=== PATIENT | male | born 1970 | race Caucasian/White ===

== ENCOUNTER 2022-07-12 15:54 | Outpatient (CLI) | payer OTHER, SELFPAY ==
--- OUTSIDE RECORDS SUMMARY | 2022-07-12 07:55 | XMS_ITS | Clinical Summary ---
:1970 Author Organization [facility] Address [address] [place] [address] Care Team Providers Name Role Phone Unavailable Primary Care Provider Unavailable Source Comments You are receiving this document as you are listed as the primary care provider,follow-up provider, or the patient has been referred to you for consultation.This is in compliance with the Medicare and Medicaid EHR Incentive Program,which states Providers who transition their patient to another setting of careor provider of care or refers their patient to another provider of care shouldprovide summarycare record for each transition of care or referral. [employer] Allergies No known active allergies Medications Medication Sig Dispensed Refills Start Date End Date Status fenofibrate (LOFIBRA) Take 160 mg by 0 Active 160 MG tablet mouth daily. Active Problems Problem Noted Date Hypertriglyceridemia 03/11/2022 Immunizations Name Administration Dates Next Due Flu Vac Preserv Free (3+yrs) 12/04/2012, 08/14/2011, 010 Flublok (RIV4) 11/08/2021 Influenza [id number] 09/21/2009 Influenza IIV4 (Quadrivalent) 0.5mL 09/05/2020, 10/06/2019, 12/22/2017, (10880) 12/07/2015 Moderna (Spikevax) COVID-19, 12+ Yrs 11/08/2021 Pfizer (Comirnaty) COVID-19, 12+ Yrs 03/13/2021, 02/20/2021 Purple Top Tdap 12/07/2015 Family History Medical History Relation Name Comments Cancer, Breast Sister Rimma Cancer, Ovary Negative Family History Relation Name Status Comments Father Alive Mother Alive Sister Rimma Social History Tobacco Use Types Packs/Day Years Used Date Smoking Tobacco: Never Smokeless Tobacco: Never Alcohol Use Standard Drinks/Week Comments Yes 0 (1 standard drink = 0.6 oz pure alcoho l) Sex Assigned at Date Recorded Not on file Last Filed Vital Signs Vital Sign Reading Time Taken Comments Blood Pressure 134/76 03/11/2022 1:05 PM CDT Pulse 80 03/11/2022 1:05 PM CDT Temperature - - Respiratory Rate 16 03/11/2022 1:05 PM CDT Oxygen Saturation - - Inhaled Oxygen Concentration - - Weight 108.9 kg (240 lb) 03/11/2022 1:05 PM CDT Height 182.9 cm (6') 03/11/2022 1:05 PM CDT Body Mass Index 32.55 03/11/2022 1:05 PM CDT Plan of Treatment Health Maintenance Due Date Last Done Comments Colon Cancer Screening Plan 1970 Due Hep C Screening (Preventive 1970 Services) HepB (1) 1970 HIV Screening (Preventive 1988 Services) Adult Preventive Visit 1990 Influenza (#1) 2022 11/08/2021, 09/05/2020, 10/06/2019, Additional history exists Zoster/Shingles (1 of 2) 2022 DTaP/Tdap/Td (2 - Tdap) 12/07/2025 12/07/2015 Cholesterol 03/12/2027 03/12/2022 COVID-19 Vaccine Completed 11/08/2021, 03/13/2021, 02/20/2021 HepA Aged Out No longer eligib le based on patient 's age to complete this topic Hib Aged Out No longer eligib le based on patient 's age to complete this topic IPV (Polio) Aged Out No longer eligib le based on patient 's age to complete this topic MCV4 Aged Out No longer eligib le based on patient 's age to complete this topic Pneumococcal Aged Out No longer eligib le based on patient 's age to complete this topic Insurance Payer Benefit Plan / Subscriber ID Effective Dates Phone Addre ss Type Group [employer] FULLY [id number] 2017-Present Commercial INSURED
--- OUTSIDE RECORDS SUMMARY | 2022-07-12 07:55 | XMS_ITS | Encounter Summary ---
:1970 Author Organization [facility] Address [address] [address] Care Team Providers Name Role Phone Unavailable Primary Care Provider Unavailable Reason for Visit Procedure/Equipment (Routine) - Incomplete Specialty Diagnoses / Procedures Referred By Contact Refer red To Contact Diagnoses Axillary mass, bilateral KeithRandall vance, PA-C Procedures YMM Mammogram Diag Bilat MM Mammogram Diag Bilat [address] [address] [place] [address] Referral ID Status Reason Start Date Expiration Date Visits V isits Requested Authorized [id number] Incomplete 03/11/2022 06/10/2023 1 1 Encounter Details Date Type Department Care Team Description 03/18/2022 Ancillary Procedure [facility] [address] Randall Parker , Axillary mass, Mammography PA-C bilateral 3850 [facility] [address] [facility]. [address] [address] [phone] Social History Tobacco Use Types Packs/Day Years Used Date Smoking Tobacco: Never Smokeless Tobacco: Never Alcohol Use Standard Drinks/Week Comments Yes 0 (1 standard drink = 0.6 oz pure alcoho l) Sex Assigned at Date Recorded Not on file documented as of this encounter Plan of Treatment Not on filedocumented as of this encounter Procedures Procedure Name Priority Date/Time Associated Diagnosis Comme nts YMM MAMMOGRAM DIAG Routine 03/18/2022 7:44 AM Axillary mass, R esults for this BILAT CDT bilateral procedure are i n the results section. documented in this encounter Results [facility] US Breast Bilat (03/18/2022 8:05 AM CDT) Anatomical Region Laterality Modality Breast Bilateral Ultrasound Specimen (Source) Anatomical Collection Method Collection Time Re ceived Time Location / / Volume Laterality 03/18/2022 7:57 AM CDT Impressions 03/18/2022 8:24 AM CDT HISTORY: Bilateral axillary masses COMPARISON: None ?? FINDINGS: ??Bilateral mammogram was perf ormed. Fatty replaced axillary lymph nodes are seen bilaterally. No suspicious finding is seen. Ultrasound of the axilla bilaterally in the areas of concern was performed. No abnormality is seen. Normal, fatty replaced lymph nodes are present bilaterally. IMPRESSION: ??ACR BI-RADS CATEGORY 1: ?? Negative. ?? RECOMMENDATION: Routine breast cancer sc reening. Clinical follow up of the areas of concern within the axilla bilaterally. Given the lack of imaging findings, management would need to be based on clinical grounds. The results of this examination and paula mmended follow up were discussed with the patient. [facility] will attempt to schedule recommended follow up with the patient. Procedure Note Amber Murray MD - 03/18/2022Formattin g of this note might be different from the original. IMPRESSION HISTORY: Bilateral axillary masses COMPARISON: None FINDINGS: Bilateral mammogram was perfor med. Fatty replaced axillary lymph nodes are seen bilaterally. No suspicious finding is seen. Ultrasound of the axilla bilaterally in the areas of concern was performed. No abnormality is seen. Normal, fatty replaced lymph nodes are present bilaterally. IMPRESSION: ACR BI-RADS CATEGORY 1: Nega tive. RECOMMENDATION: Routine breast cancer sc reening. Clinical follow up of the areas of concern within the axilla bilaterally. Given the lack of imaging findings, management would need to be based on clinical grounds. The results of this examination and paula mmended follow up were discussed with the patient. [facility] will attempt to schedule recommended follow up with the patient. Randall Parker PA-C [facility] Mammogram Diag Bilat (03/18/2022 7:44 AM CDT) Anatomical Region Laterality Modality Breast Bilateral Mammography Specimen (Source) Anatomical Collection Method Collection Time Re ceived Time Location / / Volume Laterality 03/18/2022 7:39 AM CDT Impressions 03/18/2022 8:24 AM CDT HISTORY: Bilateral axillary masses COMPARISON: None ?? FINDINGS: ??Bilateral mammogram was perf ormed. Fatty replaced axillary lymph nodes are seen bilaterally. No suspicious finding is seen. Ultrasound of the axilla bilaterally in the areas of concern was performed. No abnormality is seen. Normal, fatty replaced lymph nodes are present bilaterally. IMPRESSION: ??ACR BI-RADS CATEGORY 1: ?? Negative. ?? RECOMMENDATION: Routine breast cancer sc reening. Clinical follow up of the areas of concern within the axilla bilaterally. Given the lack of imaging findings, management would need to be based on clinical grounds. The results of this examination and paula mmended follow up were discussed with the patient. [facility] will attempt to schedule recommended follow up with the patient. Procedure Note Amber Murray MD - 03/18/2022Formattin g of this note might be different from the original. IMPRESSION HISTORY: Bilateral axillary masses COMPARISON: None FINDINGS: Bilateral mammogram was perfor med. Fatty replaced axillary lymph nodes are seen bilaterally. No suspicious finding is seen. Ultrasound of the axilla bilaterally in the areas of concern was performed. No abnormality is seen. Normal, fatty replaced lymph nodes are present bilaterally. IMPRESSION: ACR BI-RADS CATEGORY 1: Nega tive. RECOMMENDATION: Routine breast cancer sc reening. Clinical follow up of the areas of concern within the axilla bilaterally. Given the lack of imaging findings, management would need to be based on clinical grounds. The results of this examination and paula mmended follow up were discussed with the patient. [facility] will attempt to schedule recommended follow up with the patient. Randall Parker PA-C RAD [facility] documented in this encounter Visit Diagnoses Diagnosis Axillary mass, bilateral Axillary mass, bilateral documented in this encounter
--- OUTSIDE RECORDS SUMMARY | 2022-07-12 07:55 | XMS_ITS | Encounter Summary ---
:1970 Author Organization [facility] Address [address], [place] [address] Care Team Providers Name Role Phone Unavailable Primary Care Provider Unavailable Reason for Visit Procedure/Equipment (Routine) - Incomplete Specialty Diagnoses / Procedures Referred By Contact Refer red To Contact Diagnoses Axillary mass, bilateral Randall Parker, PA-C Procedures [facility] US Breast Bilat US Breast Bilat [address] [place] [address] Referral ID Status Reason Start Date Expiration Date Visits V isits Requested Authorized [id number] Incomplete 03/11/2022 06/10/2023 1 1 Encounter Details Date Type Department Care Team Description 03/18/2022 Ancillary Procedure [facility] [address] Randall Parker , Axillary mass, Mammography PA-C bilateral [address] [facility] [address] [facility]. [place] [id number] [place] [address] [phone] Social History Tobacco Use Types Packs/Day Years Used Date Smoking Tobacco: Never Smokeless Tobacco: Never Alcohol Use Standard Drinks/Week Comments Yes 0 (1 standard drink = 0.6 oz pure alcoho l) Sex Assigned at Date Recorded Not on file documented as of this encounter Plan of Treatment Not on filedocumented as of this encounter Procedures Procedure Name Priority Date/Time Associated Diagnosis Comme nts [facility] US BREAST BILAT Routine 03/18/2022 8:05 AM Axillary mass, Results for this CDT bilateral procedure are i n the results section. documented in this encounter Results [facility] US Breast Bilat (03/18/2022 8:05 AM CDT) [...] up were discussed with the patient. [facility] will attempt to schedule recommended follow up [...] up were discussed with the patient. [facility] will attempt to schedule recommended follow up with the patient. Randall Parker PA-C RAD AYESHA YMM Mammogram Diag Bilat (03/18/2022 7:44 AM CDT) [...] up were discussed with the patient. [facility] will attempt to schedule recommended follow up [...] up were discussed with the patient. [facility] will attempt to schedule recommended follow up with the patient. Randall Parker PA-C RAD AYESHA documented in this encounter Visit Diagnoses Diagnosis Axillary mass, bilateral Axillary mass, bilateral documented in this encounter
--- OUTSIDE RECORDS SUMMARY | 2022-07-12 07:56 | XMS_ITS | Encounter Summary ---
:1970 Author Organization [facility] Address [address] [place] [address] Care Team Providers Name Role Phone Unavailable Primary Care Provider Unavailable Reason for Referral Procedure/Equipment (Routine) - Incomplete Specialty Diagnoses / Procedures Referred By Contact Refer red To Contact Diagnoses Axillary mass, bilateral Randall Parker PA-C Procedures Y[facility] US Breast Bilat MM US Breast Bilat [address] [place] [address] Referral ID Status Reason Start Date Expiration Date Visits V isits Requested Authorized [id number] Incomplete 03/11/2022 06/10/2023 1 1 Procedure/Equipment (Routine) - Incomplete Specialty Diagnoses / Procedures Referred By Contact Refer red To Contact Diagnoses Axillary mass, bilateral Randall Parker PA-C Procedures YMM Mammogram Diag Bilat MM Mammogram Diag Bilat [address] [address] [place] [address] Referral ID Status Reason Start Date Expiration Date Visits V isits Requested Authorized [id number] Incomplete 03/11/2022 06/10/2023 1 1 (Routine) - New Request Specialty Diagnoses / Procedures Referred By Contact Refer red To Contact Diagnoses Screen for colon cancer Randall Parker PA-C Procedures Endoscopy, Colon, Screening/Diagnostic [address] [place] [address] Referral ID Status Reason Start Date Expiration Date Visits V isits Requested Authorized [id number] New Request 03/11/2022 03/11/2024 1 1 Reason for Visit Reason Comments SWOLLEN GLANDS Under arms bilat x2mo Encounter Details Date Type Department Care Team Description 03/11/2022 Office Visit [place] [address] Randall Parker ma ss, bilateral (Primary Dx); Family Medicine NAYLA Jane Hypertriglyceridemia (HRC); [place] [address] [facility] Screen for co stephanie cancer; [facility] Screening for prostate cancer; [place], [place] Screening for diabetes mellitus [id number] [phone] Social History Tobacco Use Types Packs/Day Years Used Date Smoking Tobacco: Never Smokeless Tobacco: Never Alcohol Use Standard Drinks/Week Comments Yes 0 (1 standard drink = 0.6 oz pure alcoho l) Sex Assigned at Date Recorded Not on file documented as of this encounter Last Filed Vital Signs Vital Sign Reading [...] Mass Index 32.55 03/11/2022 1:05 PM CDT documented in this encounter Patient Instructions Patient InstructionsRandall Parker PA-C - 03/11/2022 1:30 PM CDT Plan: 1). Will obtain mammogram and ultrasound as ordered and base any follow up on results 2). Orders placed for fasting labs to get done when able 3). Orders placed for colonoscopy 4). Follow up with any other acute issues or concerns. documented in this encounter Progress Notes Randall Parker PA-C - 03/11/2022 1:00 PM CDT Chief Complaint Patient presents with ??? SWOLLEN GLANDS Under arms bilat x2mo History of present illness: Ryder Choi is a 51 y.o. male who presents with: 1). Swollen glands: Has noted likely swollen glands vs other mass in both axillary areas first notedabout 2 months ago. Seem to be symmetric on both sides.Initally getting bigger but have not continued to enlarge. Denies any tenderness or outward redness or swelling. No other LAD. Feels weill with no illness type symptoms, fatigue, weight loss, or night sweats. No breast enlargement or nipple discharge. 2). Hypertriglyceridemia: Currently on Fenofibrate 160mg daily. Is due for fasting labs. NOTE: Also due for screening colonoscopy Review of Systems: As stated in HPI otherwise negative. Past Medical History: Reviewed and updated in medical record at visit Past Surgical History: Reviewed and updated in medical record at visit Family History: Reviewed and updated in medical record at visit Medications: Reviewed and reconciled in medical record at visit. Allergies: Reviewed and updated in medical record at visit. Physical Exam: Vitals: 03/11/22 1305 BP: 134/76 Pulse: 80 Resp: 16 GEN: Alert, oriented, well nourished/hydrated in NAD. Does not appear acutely ill. EYES: PEERL, EOMI NECK: Supple, trachea midline, no LAD CHEST: Normal effort, CTA. HEART: RRR, No audible murmur, rub or gallop. ABD: No tenderness to palpation and no rebound or guarding. No masses or organomegaly. SKIN: Warm and dry without rash. Exam of both axillary areas with symmetric masses in lower axilla. No outward redness. No tenderness. They feel smooth and soft. No breast lesions noted. M/S: No joint swelling or redness. NEURO: CN 2-12 intact, non-focal exam PSYCH: Alert and oriented. Normal affect. Diagnosis: Encounter Diagnoses Name Primary? Axillary mass, bilateral Yes ??? Hypertriglyceridemia (HRC) ??? Screen for colon cancer ??? Screening for prostate cancer ??? Screening for diabetes mellitus Plan: 1). Will obtain mammogram and ultrasound as ordered and base any follow up on results 2). Orders placed for fasting labs to get done when able 3). Orders placed for colonoscopy 4). Follow up with any other acute issues or concerns. Orders Placed This Encounter ??? Complete Blood Count -W/Diff ??? C Reactive Protein (CRP) ??? PSA Tumor Marker (Prostatic Specific Antigen) ??? Lipid Panel - LDLD If Trig High ??? Hgb A1C ??? YMM Mammogram Diag Bilat ??? YMM US Breast Bilat ??? Endoscopy, Colon, Screening/Diagnostic documented in this encounter Plan of Treatment Scheduled Orders Name Type Priority Associated Diagnoses Order S chedule Endoscopy, Colon, GI Routine Screen for colon cancer 1 Occurrences starting Screening/Diagnostic 022 until 03/11/2024 documented as of this encounter Results [facility] US Breast Bilat (03/18/2022 8:05 AM CDT) [...] up were discussed with the patient. [facility] will attempt to schedule recommended follow up [...] up were discussed with the patient. [facility] will attempt to schedule recommended follow [...] up were discussed with the patient. [facility] will attempt to schedule recommended follow [...] up were discussed with the patient. The [facility] will attempt to schedule recommended follow up with the patient. Randall Parker PA-C [facility] Hgb A1C (03/12/2022 10:01 AM CDT) [facility] Method Time Signature Hemoglobin A1C 5.6 <=5.6 % 03/12/2022 [place] 5:31 PM CDT [facility] Specimen Anatomical Collection Method / Collection Time Recei mac Time (Source) Location / Volume Laterality Blood Venipuncture / 03/12/2022 10:01 2 Unknown AM CDT 10:01 AM CDT Randall Parker PA-C LAB_1 Performing Organization Address City/State/[facility] Code Phon e Number [facility] [address] [address] (ABNORMAL) Lipid Panel - LDLD If Trig High (03/12/2022 10:01 AM CDT) [facility] Method Time Signature Cholesterol 194 0 - 199 03/12/2022 [facility] mg/dL 2:49 PM CDT LABORATORY Triglyceride 244 (H) <=149 03/12/2022 [facility] mg/dL 2:49 PM CDT LABORATORY HDL Cholesterol 31 (L) >=40 03/12/2022 [facility] mg/dL 2:49 PM CDT LABORATORY LDL, Calculated 114 <130 03/12/2022 [facility] mg/dL 2:49 PM CDT LABORATORY Non HDL Chol, 163 (H) <=159 03/12/2022 [facility] Calculated mg/dL 2:49 PM CDT LABORATORY Cholesterol/HDL 6.3 03/12/2022 [facility] Ratio 2:49 PM CDT LABORATORY Hours Fasting 13 03/12/2022 [facility] 2:49 PM CDT Specimen Anatomical Collection Method / Collection Time Recei mac Time (Source) Location / Volume Laterality Blood Venipuncture / 03/12/2022 10:01 2 Unknown AM CDT 10:01 AM CDT Randall Parker PA-C LAB_1 Performing Organization Address City/State/ZIP Code Phon e Number [facility] [address] [place] [phone] [facility] [address] [place] [address], [facility] PSA Tumor Marker (Prostatic Specific Antigen) (03/12/2022 10:01 AM CDT) athologist Signature Prostatic 0.4 0.0 - 4.0 03/12/2022 [facility] Specific ng/mL 4:07 PM CDT LABORATORY Antigen Specimen Anatomical Collection Method / Collection Time Recei mac Time (Source) Location / Volume Laterality Blood Venipuncture / 03/12/2022 10:01 2 Unknown AM CDT 10:01 AM CDT Narrative [facility] - 03/12/2022 4:07 P M CDT The Easy Tempo PSA Chemiluminescent immunoas say is used. Results obtained with different test methods or kits cannot be used inte rchangeably. Randall Parker PA-C LAB_1 Performing Organization Address City/State/ZIP Code Phon e Number [facility] [address] [place] [address] C Reactive Protein (CRP) (03/12/2022 10:01 AM CDT) athologist Signature C-Reactive <0.5 0.0 - 0.7 03/12/2022 [facility] Protein mg/dL 2:49 PM CDT LABORATORY Specimen Anatomical Collection Method / Collection Time Recei mac Time (Source) Location / Volume Laterality Blood Venipuncture / 03/12/2022 10:01 2 Unknown AM CDT 10:01 AM CDT Randall Parker PA-C LAB_1 Performing Organization Address City/[facility]/ZIP Code Phon e Number [facility] [address] [place], [place] [phone] documented in this encounter Visit Diagnoses Diagnosis Axillary mass, bilateral - Primary Hypertriglyceridemia (HRC) Pure hyperglyceridemia Screen for colon cancer Special screening for malignant neoplasm s, colon Screening for prostate cancer Special screening for malignant neoplasm of prostate Screening for diabetes mellitus Axillary mass, bilateral Axillary mass, bilateral documented in this encounter
--- OUTSIDE RECORDS SUMMARY | 2022-07-12 07:56 | XMS_ITS | Encounter Summary ---
:1970 Author Organization [facility] Address [address] [place] [address] Care Team Providers Name Role Phone Unavailable Primary Care Provider Unavailable Encounter Details Date Type Department Care Team Description 03/12/2022 Lab Visit [facility] Axillary mass, bilateral; [address] [facility]ening for prostate cance r; [place], [place] Hypertriglycer idemia (HRC); [address] Screening for diabetes [facility] [phone] Social History Tobacco Use Types Packs/Day Years Used Date Smoking Tobacco: Never Smokeless Tobacco: Never Alcohol Use Standard Drinks/Week Comments Yes 0 (1 standard drink = 0.6 oz pure alcoho l) Sex Assigned at Date Recorded Not on file documented as of this encounter Plan of Treatment Not on filedocumented as of this encounter Procedures Procedure Name Priority Date/Time Associated Diagnosis Comme nts CBC AND Routine 03/12/2022 10:01 Axillary mass, bilateral Results for DIFFERENTIAL PANEL AM CDT this proc edure are in the results section. LIPID PANEL AND Routine 03/12/2022 10:01 Hypertriglyceridemia (HRC) Results for DIRECT LDL(IF AM CDT this procedure NEEDED) are in the results section. COMPLETE BLOOD Routine 03/12/2022 10:01 Axillary mass, bilater al Results for COUNT-W/DIFF AM CDT this procedure are in the results section. PROSTATIC SPECIFIC Routine 03/12/2022 10:01 Screening for pros gann Results for ANTIGEN (DIAGNOSTIC AM CDT cancer this pro cedure F/U) are in the results section. C-REACTIVE PROTEIN Routine 03/12/2022 10:01 Axillary mass, jorge ateral Results for AM CDT this procedure are in the results section. HGB A1C Routine 03/12/2022 10:01 Screening for diabetes R esults for AM CDT mellitus this procedure are in the results section. documented in this encounter Results Complete Blood Count-W/Diff (03/12/2022 10:01 AM CDT) P athologist Signature WBC 5.9 3.5 - 10.5 03/12/2022 [facility] x10(9)/L 10:06 AM CDT RBC 5.53 4.32 - 03/12/2022 [facility] 5.72 10:06 AM CDT x10(12)/L Hemoglobin 15.9 13.5 - 03/12/2022 [facility] 17.5 g/dL 10:06 AM CDT HCT 46.9 38.8 - 03/12/2022 [facility] 50.0 % 10:06 AM CDT MCV 84.8 80.0 - 03/12/2022 [facility] 100.0 fL 10:06 AM CDT MCH 28.8 27.6 - 03/12/2022 [facility] 33.3 pg 10:06 AM CDT MCHC 33.9 31.5 - 03/12/2022 [facility] 35.2 g/dL 10:06 AM CDT RDW 11.9 11.9 - 03/12/2022 [facility] 15.5 % 10:06 AM CDT Platelets 167 150 - 450 03/12/2022 [facility] x10(9)/L 10:06 AM CDT Neutrophil 3.4 1.7 - 7.0 03/12/2022 [facility] Absolute 10(9)/L 10:06 AM CDT Lymphocyte 1.8 1.0 - 4.8 03/12/2022 [facility] Absolute 10(9)/L 10:06 AM CDT Monocytes 0.5 0.2 - 0.9 03/12/2022 [facility] Absolute 10(9)/L 10:06 AM CDT Eosinophil 0.1 0.0 - 0.5 03/12/2022 [facility] Absolute 10(9)/L 10:06 AM CDT Basophil 0.0 0.0 - 0.3 03/12/2022 [facility] Absolute 10(9)/L 10:06 AM CDT Immature Gran % 0.2 0.0 - 0.5 03/12/2022 [facility] % 10:06 AM CDT Specimen Anatomical Collection Method / Collection Time Recei mac Time (Source) Location / Volume Laterality Blood Venipuncture / 03/12/2022 10:01 2 Unknown AM CDT 10:01 AM CDT Randall Parker PA-C LAB_1 Performing Organization Address City/State/ZIP Code Phon e Number [facility] [address] [place] [address] Hgb A1C (03/12/2022 10:01 AM CDT) [facility] Method Time Signature Hemoglobin A1C 5.6 <=5.6 % 03/12/2022 [facility] 5:31 PM CDT [facility] Specimen Anatomical Collection Method / Collection Time Recei mac Time (Source) Location / Volume Laterality Blood Venipuncture / 03/12/2022 10:01 2 Unknown AM CDT 10:01 AM CDT Randall Parker PA-C LAB_1 Performing Organization Address City/State/ZIP Code Phon e Number [facility] [address] [address] (ABNORMAL) Lipid Panel - LDLD If Trig High (03/12/2022 10:01 AM CDT) [facility] Method Time Signature Cholesterol 194 0 - 199 03/12/2022 [facility] mg/dL 2:49 PM CDT LABORATORY Triglyceride 244 (H) <=149 03/12/2022 [facility] mg/dL 2:49 PM CDT LABORATORY HDL Cholesterol 31 (L) >=40 03/12/2022 [facility] mg/dL 2:49 PM CDT LABORATORY LDL, Calculated 114 <130 03/12/2022 [facility] mg/dL 2:49 PM CDT LABORATORY Non HDL Chol, 163 (H) <=159 03/12/2022 [facility] Calculated mg/dL 2:49 PM CDT LABORATORY Cholesterol/HDL 6.3 03/12/2022 [facility] Ratio 2:49 PM CDT LABORATORY Hours Fasting 13 03/12/2022 [facility] 2:49 PM CDT Specimen Anatomical Collection Method / Collection Time Recei mac Time (Source) Location / Volume Laterality Blood Venipuncture / 03/12/2022 10:01 2 Unknown AM CDT 10:01 AM CDT Randall Parker PA-C LAB_1 Performing Organization Address City/State/ZIP Code Phon e Number [facility] [address] [place], [place] [address] [facility] [address] [place] [address], [facility] PSA Tumor Marker (Prostatic Specific Antigen) (03/12/2022 10:01 AM CDT) athologist Signature Prostatic 0.4 0.0 - 4.0 03/12/2022 [facility] Specific ng/mL 4:07 PM CDT LABORATORY Antigen Specimen Anatomical Collection Method / Collection Time Recei mac Time (Source) Location / Volume Laterality Blood Venipuncture / 03/12/2022 10:01 2 Unknown AM CDT 10:01 AM CDT Narrative [facility] - 03/12/2022 4:07 P M CDT The [facility] PSA Chemiluminescent immunoas say is used. Results obtained with different test methods or kits cannot be used inte rchangeably. Randall Parker PA-C LAB_1 Performing Organization Address City/[facility]/ZIP Code Phon e Number [facility] [address] [place] [address] C Reactive Protein (CRP) (03/12/2022 10:01 AM CDT) athologist Signature C-Reactive <0.5 0.0 - 0.7 03/12/2022 [facility] Protein mg/dL 2:49 PM CDT LABORATORY Specimen Anatomical Collection Method / Collection Time Recei mac Time (Source) Location / Volume Laterality Blood Venipuncture / 03/12/2022 10:01 2 Unknown AM CDT 10:01 AM CDT Randall Parker PA-C LAB_1 Performing Organization Address City/[facility]/ZIP Code Phon e Number [facility] [address] [place] [address] documented in this encounter Visit Diagnoses Diagnosis Axillary mass, bilateral Screening for prostate cancer Special screening for malignant neoplasm of prostate Hypertriglyceridemia (HRC) Pure hyperglyceridemia Screening for diabetes mellitus documented in this encounter
[2022-07-12 13:15] LABS: Albumin* 4.2 g/dL (3.3-5.0); Chloride* 101 mmol/L (96-114); Sodium* 135 mmol/L (135-149)
[2022-07-12 13:16] LABS: Potassium* 4.2 mmol/L (3.6-5.1)
[2022-07-12 13:17] LABS: Cholesterol* 211 mg/dL (90-199); Creatinine* 0.8 mg/dL (0.5-1.5); Estimated Glomerular Filt Rate 108 ml/min
[2022-07-12 13:18] LABS: Alanine Aminotransferase* 29 U/L (4-50); Alkaline Phosphatase* 106 U/L (40-150); Aspartate Amino Transferase* 30 U/L (12-35); Bilirubin Total* 0.5 mg/dL (0.1-1.5); Blood Urea Nitrogen* 18 mg/dL (5-24); Carbon Dioxide* 26 mmol/L (20-32); Glucose* 102 mg/dL (60-115); Total Protein* 7.2 g/dL (6.0-8.3)
[2022-07-12 13:19] LABS: HDL Cholesterol* 31 mg/dL (>=40); LDL Cholesterol Calculated 95 mg/dL (<100)
[2022-07-12 13:49] LABS: PSA Screen* 0.43 ng/mL (0.10-4.00)
[2022-07-12 13:52] LABS: Triglycerides* 423 mg/dL (40-149)
== END 2022-07-12 15:55 | disposition home or self-care (01) ==
PROVIDERS: PCP Family Medicine; Visit Provider Internal Medicine
DX: Z00.00 Encounter for general adult medical examination without abnormal findings (principal); E78.1 Pure hyperglyceridemia; F41.9 Anxiety disorder, unspecified; Z12.5 Encounter for screening for malignant neoplasm of prostate
CPT/HCPCS: 80053; 80061; 84153

== ENCOUNTER 2022-08-20 08:43 | Outpatient (CLI) | payer OTHER, SELFPAY ==
--- OUTSIDE RECORDS SUMMARY | 2022-08-20 09:00 | XMS_ITS | Encounter Summary ---
:1970 Author Organization [facility] Address [address], [place] [address] Care Team Providers Name Role Phone Unavailable Primary Care Provider Unavailable Reason for Visit Procedure/Equipment (Routine) - Incomplete Specialty Diagnoses / Procedures Referred By Contact Refer red To Contact Diagnoses Axillary mass, bilateral Randall Parker, PA-C Procedures [facility] US Breast Bilat US Breast Bilat [address] [place] [address] Referral ID Status Reason Start Date Expiration Date Visits V isits Requested Authorized [id number] Incomplete 03/11/2022 06/10/2023 1 1 Encounter Details Date Type Department Care Team Description 03/18/2022 Ancillary Procedure [facility] [address] Randall Parker , Axillary mass, Mammography PA-C bilateral 3850 [facility] [address] [facility]. [place] [id number] [place] [id number] [phone] Social History Tobacco Use Types Packs/Day Years Used Date Smoking Tobacco: Never Smokeless Tobacco: Never Alcohol Use Standard Drinks/Week Comments Yes 0 (1 standard drink = 0.6 oz pure alcoho l) Sex Assigned at Date Recorded Not on file documented as of this encounter Plan of Treatment Not on filedocumented as of this encounter Procedures Procedure Name Priority Date/Time Associated Diagnosis Comme nts [facility] US BREAST BILAT Routine 03/18/2022 8:05 AM Axillary mass, Results for this CDT bilateral procedure are i n the results section. documented in this encounter Results [facility] US Breast Bilat (03/18/2022 8:05 AM CDT) [...] up were discussed with the patient. The [facility] will attempt to schedule recommended follow [...] up were discussed with the patient. The [facility] will attempt to schedule recommended follow [...] up were discussed with the patient. The [facility] will attempt to schedule recommended follow [...] up were discussed with the patient. The [facility] will attempt to schedule recommended follow up with the patient. Randall Parker PA-C RAD [facility] documented in this encounter Visit Diagnoses Diagnosis Axillary mass, bilateral Axillary mass, bilateral documented in this encounter
--- OUTSIDE RECORDS SUMMARY | 2022-08-20 09:00 | XMS_ITS | Clinical Summary ---
:1970 Author Organization [facility] [place] [address] Care Team Providers Name Role Phone Jarod Soni MD Primary Care Provider Allergies No known active allergies Medications Not on file Active Problems Not on file Social History Tobacco Use Types Packs/Day Years Used Date Never Assessed Sex Assigned at Date Recorded Not on file Last Filed Vital Signs Vital Sign Reading Time Taken Comments Blood Pressure - - Pulse - - Temperature - - Respiratory Rate - - Oxygen Saturation - - Inhaled Oxygen Concentration - - Weight 95.3 kg (210 lb) 11/07/2010 8:20 AM GLOBAL RECRUITER Height 182.9 cm (6') 11/07/2010 8:20 AM GLOBAL RECRUITER Body Mass Index 28.48 11/07/2010 8:20 AM GLOBAL RECRUITER Plan of Treatment Health Maintenance Due Date Last Done Comments COVID-19 vaccine series (#1) 06/17/1973 Tdap 1983 Depression screening for age 12+ 1984 BMI (ht and wt on same day) for age 18+ 1990 Hepatitis C screening for age 18-79 1990 Tetanus booster 1992 Colonoscopy through age 75 2017 Lipids for age 45-75 2017 Influenza for age 9-49 07/25/2022 Results Not on filefrom Last 3 Months Insurance Payer Benefit Plan / Subscriber ID Effective Dates Phone Addre ss Type Group BLUE CROSS BLUE CROSS OF [id number] 2009-Present [address] [place] [address] Care Teams Various Exceptionalities Teacher Relationship Specialty Start Date End Date Jarod Soni MD PCP - General Internal Medicine 10/24/10
--- OUTSIDE RECORDS SUMMARY | 2022-08-20 09:00 | XMS_ITS | Clinical Summary ---
:1970 Author Organization [facility] Address [address] [place] [address] Care Team Providers Name Role Phone Unavailable [...] for each transition of care or referral. [facility] Allergies No known active allergies Medications Medication Sig Dispensed Refills Start Date End Date Status fenofibrate (LOFIBRA) Take 160 mg by 0 Active 160 MG tablet mouth daily. Active Problems Problem Noted Date Hypertriglyceridemia 03/11/2022 Immunizations Name Administration Dates Next Due Flu Vac Preserv Free (3+yrs) 12/04/2012, 08/14/2011, 010 Flublok (RIV4) 11/08/2021 Influenza [id number] 09/21/2009 Influenza IIV4 (Quadrivalent) 0.5mL 09/05/2020, 10/06/2019, 12/22/2017, ([id number]) 12/07/2015 Moderna (Spikevax) COVID-19, 12+ Yrs 11/08/2021 [...] Effective Dates Phone Addre ss Type Group Qulsar FULLY [id number] 2017-Present Commercial INSURED
--- OUTSIDE RECORDS SUMMARY | 2022-08-20 09:00 | XMS_ITS | Encounter Summary ---
:1970 Author Organization [facility] Address [address], [place] [address] Care Team Providers Name Role Phone Unavailable Primary Care Provider Unavailable Reason for Visit Procedure/Equipment (Routine) - Incomplete Specialty Diagnoses / Procedures Referred By Contact Refer red To Contact Diagnoses Axillary mass, bilateral KeithRandall vance, PA-C Procedures [facility] Mammogram Diag Bilat MM Mammogram Diag Bilat [address] [address] [place] [address] Referral ID Status Reason Start Date Expiration Date Visits V isits Requested Authorized [id number] Incomplete 03/11/2022 06/10/2023 1 1 Encounter Details Date Type Department Care Team Description 03/18/2022 Ancillary Procedure [facility] [address] Randall Parker , Axillary mass, Mammography PA-C bilateral 3850 [facility] [address] [facility]. [address] [address] [phone] Social History Tobacco Use Types Packs/Day Years [...] results section. documented in this encounter Results [facility] US Breast Bilat (03/18/2022 8:05 AM CDT) [...] up were discussed with the patient. [facility] will attempt to schedule recommended follow [...] up were discussed with the patient. [facility] will attempt to schedule recommended follow up with the patient. Randall Parker PA-C RAD AYESHA [facility] Mammogram Diag Bilat (03/18/2022 7:44 AM CDT) [...] up were discussed with the patient. [facility] will attempt to schedule recommended follow [...] up were discussed with the patient. [facility] will attempt to schedule recommended follow up with the patient. Randall Parker PA-C RAD AYESHA documented in this encounter Visit Diagnoses Diagnosis Axillary mass, bilateral Axillary mass, bilateral documented in this encounter
--- OUTSIDE RECORDS SUMMARY | 2022-08-20 09:00 | XMS_ITS | Encounter Summary ---
:1970 Author Organization [facility] Address [address] [place] [address] Care Team Providers Name Role Phone Unavailable Primary Care Provider Unavailable Encounter Details Date Type Department Care Team Description 03/12/2022 Lab Visit [facility] Axillary mass, bilateral; [address] [facility] Screening for prostate cance r; [place], [place] Hypertriglycer idemia (HRC); [address] Screening for diabetes [facility] [phone] Social History Tobacco Use Types Packs/Day Years [...] Signature WBC 5.9 3.5 - 10.5 03/12/2022 [facility] x10(9)/L 10:06 AM CDT RBC 5.53 4.32 - 03/12/2022 [facility] 5.72 10:06 AM CDT x10(12)/L Hemoglobin 15.9 13.5 - 03/12/2022 [facility] 17.5 g/dL 10:06 AM CDT HCT 46.9 38.8 - 03/12/2022 [facility] 50.0 % 10:06 AM CDT MCV 84.8 80.0 - 03/12/2022 [facility] 100.0 fL 10:06 AM CDT MCH 28.8 27.6 - 03/12/2022 [facility] 33.3 pg 10:06 AM CDT MCHC 33.9 31.5 - 03/12/2022 [facility] 35.2 g/dL 10:06 AM CDT RDW 11.9 11.9 - 03/12/2022 [facility] 15.5 % 10:06 AM CDT Platelets 167 150 - 450 03/12/2022 [facility] x10(9)/L 10:06 AM CDT Neutrophil 3.4 1.7 - 7.0 03/12/2022 [facility] Absolute 10(9)/L 10:06 AM CDT Lymphocyte 1.8 1.0 - 4.8 03/12/2022 [facility] Absolute 10(9)/L 10:06 AM CDT Monocytes 0.5 0.2 - 0.9 03/12/2022 [facility] Absolute 10(9)/L 10:06 AM CDT Eosinophil 0.1 0.0 - 0.5 03/12/2022 [facility] Absolute 10(9)/L 10:06 AM CDT Basophil 0.0 0.0 - 0.3 03/12/2022 [facility] Absolute 10(9)/L 10:06 AM CDT Immature Gran % 0.2 0.0 - 0.5 03/12/2022 [facility] % 10:06 AM CDT Specimen Anatomical Collection Method / Collection Time Recei mac Time (Source) Location / Volume Laterality Blood Venipuncture / 03/12/2022 10:01 2 Unknown AM CDT 10:01 AM CDT Randall Parker PA-C LAB_1 Performing Organization Address City/State/ZIP Code Phon e Number [facility] [address] [place] [address] Hgb A1C (03/12/2022 10:01 AM CDT) [facility] Method Time Signature Hemoglobin A1C 5.6 <=5.6 % 03/12/2022 [facility] 5:31 PM CDT [facility] Specimen Anatomical Collection Method / Collection Time Recei mac Time (Source) Location / Volume Laterality Blood Venipuncture / 03/12/2022 10:01 2 Unknown AM CDT 10:01 AM CDT Randall Parker PA-C LAB_1 Performing Organization Address City/State/ZIP Code Phon e Number [facility] [address] [address] (ABNORMAL) Lipid Panel - LDLD If Trig High (03/12/2022 10:01 AM CDT) [facility] Method Time Signature Cholesterol 194 0 - 199 03/12/2022 [facility] mg/dL 2:49 PM CDT LABORATORY Triglyceride 244 (H) <=149 03/12/2022 [facility] mg/dL 2:49 PM CDT LABORATORY HDL Cholesterol 31 (L) >=40 03/12/2022 [facility] mg/dL 2:49 PM CDT LABORATORY LDL, Calculated 114 <130 03/12/2022 [facility] mg/dL 2:49 PM CDT LABOR[facility]ORY Non HDL Chol, 163 (H) <=159 03/12/2022 [facility] Calculated mg/dL 2:49 PM CDT LABORATORY Cholesterol/HDL 6.3 03/12/2022 [facility] Ratio 2:49 PM CDT LABORATORY Hours Fasting 13 03/12/2022 [facility] 2:49 PM CDT Specimen Anatomical Collection Method / Collection Time Recei mca Time (Source) Location / Volume Laterality Blood Venipuncture / 03/12/2022 10:01 2 Unknown AM CDT 10:01 AM CDT Randall Parker PA-C LAB_1 Performing Organization Address City/State/ZIP Code Phon e Number [facility] [address] [place], [place] [address] [facility] [address] [place] [phone] [facility] PSA Tumor Marker (Prostatic Specific Antigen) (03/12/2022 10:01 AM CDT) athologist Signature Prostatic 0.4 0.0 - 4.0 03/12/2022 [facility] Specific ng/mL 4:07 PM CDT LABORATORY Antigen Specimen Anatomical Collection Method / Collection Time Recei mac Time (Source) Location / Volume Laterality Blood Venipuncture / 03/12/2022 10:01 2 Unknown AM CDT 10:01 AM CDT Narrative [facility] - 03/12/2022 4:07 P M CDT The [facility] PSA Chemiluminescent immunoas say is used. Results obtained with different test methods or kits cannot be used inte rchangeably. Randall Parker PA-C LAB_1 Performing Organization Address City/[facility]/ZIP Code Phon e Number [facility] [address] [place] [address] C Reactive Protein (CRP) (03/12/2022 10:01 AM CDT) athologist Signature C-Reactive <0.5 0.0 - 0.7 03/12/2022 [facility] Protein mg/dL 2:49 PM CDT LABORATORY Specimen Anatomical Collection Method / Collection Time Recei mac Time (Source) Location / Volume Laterality Blood Venipuncture / 03/12/2022 10:01 2 Unknown AM CDT 10:01 AM CDT Randall Parker PA-C LAB_1 Performing Organization Address City/[facility]/ZIP Code Phon e Number [facility] [address] [place] [address] documented in this encounter Visit Diagnoses Diagnosis Axillary mass, bilateral Screening for prostate cancer Special screening for malignant neoplasm of prostate Hypertriglyceridemia (HRC) Pure hyperglyceridemia Screening for diabetes mellitus documented in this encounter
--- OUTSIDE RECORDS SUMMARY | 2022-08-20 09:01 | XMS_ITS | Encounter Summary ---
:1970 Author Organization [facility] Address [address] [place] [address] Care Team Providers Name Role Phone Unavailable Primary Care Provider Unavailable Reason for Referral Procedure/Equipment (Routine) - Incomplete Specialty Diagnoses / Procedures Referred By Contact Refer red To Contact Diagnoses Axillary mass, bilateral Randall Parker PA-C Procedures [facility] US Breast Bilat MM US Breast Bilat [address] [place] [address] Referral ID Status Reason Start Date Expiration Date Visits V isits Requested Authorized [id number] Incomplete 03/11/2022 06/10/2023 1 1 Procedure/Equipment (Routine) - Incomplete Specialty Diagnoses / Procedures Referred By Contact Refer red To Contact Diagnoses Axillary mass, bilateral Randall Parker PA-C Procedures [facility] Mammogram Diag Bilat MM Mammogram Diag Bilat [address] [address] [place] [address] Referral ID Status Reason Start Date Expiration Date Visits V isits Requested Authorized [id number] Incomplete 03/11/2022 06/10/2023 1 1 (Routine) - New Request Specialty Diagnoses / Procedures Referred By Contact Refer red To Contact Diagnoses Screen for colon cancer Randall Parker PA-C Procedures Endoscopy, Colon, Screening/Diagnostic [address] [place] [address] Referral ID Status Reason Start Date Expiration Date Visits V isits Requested Authorized [id number] New Request 03/11/2022 03/11/2024 1 1 Reason for Visit Reason Comments SWOLLEN GLANDS Under arms bilat x2mo Encounter Details Date Type Department Care Team Description 03/11/2022 Office Visit [facility] [address] Randall Parker ma ss, bilateral (Primary Dx); Family [facility] Hypertriglyceridemia (HRC); [place] [address] [facility] Screen for co stephanie cancer; [address] [facility] Screening for prostate cancer; [place], [place] Screening for diabetes mellitus [phone] [phone] Social History Tobacco Use Types Packs/Day Years [...] up were discussed with the patient. The [facility] will attempt to schedule recommended [...] up were discussed with the patient. The [facility] will attempt to schedule recommended follow [...] up were discussed with the patient. The [facility] will attempt to schedule recommended follow [...] up were discussed with the patient. The [facility] will attempt to schedule recommended follow up with the patient. Randall Parker PA-C RAD AYESHA Hgb A1C (03/12/2022 10:01 AM CDT) [facility] Method Time Signature Hemoglobin A1C 5.6 <=5.6 % 03/12/2022 [email or web address] 5:31 PM CDT [facility] Specimen Anatomical Collection Method / Collection Time Recei mac Time (Source) Location / Volume Laterality Blood Venipuncture / 03/12/2022 10:01 2 Unknown AM CDT 10:01 AM CDT Randall Parker PA-C LAB_1 Performing Organization Address City/State/[facility] Code Phon e Number [facility] [address] [address] (ABNORMAL) Lipid Panel - LDLD If Trig High (03/12/2022 10:01 AM CDT) [facility] Method Time Signature Cholesterol 194 0 - 199 03/12/2022 [facility] mg/dL 2:49 PM CDT LABORATORY Triglyceride 244 (H) <=149 03/12/2022 [place] mg/dL 2:49 PM CDT LABORATORY HDL Cholesterol 31 (L) >=40 03/12/2022 [place] mg/dL 2:49 PM CDT LABORATORY LDL, Calculated 114 <130 03/12/2022 [place] mg/dL 2:49 PM CDT LABORATORY Non HDL Chol, 163 (H) <=159 03/12/2022 [place] Calculated mg/dL 2:49 PM CDT LABORATORY Cholesterol/HDL 6.3 03/12/2022 [place] Ratio 2:49 PM CDT LABORATORY Hours Fasting 13 03/12/2022 [facility] 2:49 PM CDT Specimen Anatomical Collection Method / Collection Time Recei mac Time (Source) Location / Volume Laterality Blood Venipuncture / 03/12/2022 10:01 2 Unknown AM CDT 10:01 AM CDT Randall Parker PA-C LAB_1 Performing Organization Address City/State/ZIP Code Phon e Number [facility] [address] [place] [address] [facility] [address] [place] [address], [facility] PSA Tumor Marker (Prostatic Specific Antigen) (03/12/2022 10:01 AM CDT) athologist Signature Prostatic 0.4 0.0 - 4.0 03/12/2022 [facility] Specific ng/mL 4:07 PM CDT LABORATORY Antigen Specimen Anatomical Collection Method / Collection Time Recei mac Time (Source) Location / Volume Laterality Blood Venipuncture / 03/12/2022 10:01 2 Unknown AM CDT 10:01 AM CDT Narrative [facility] - 03/12/2022 4:07 P M CDT The [employer] PSA Chemiluminescent immunoas say is used. Results obtained with different test methods or kits cannot be used inte rchangeably. Randall Parker PA-C LAB_1 Performing Organization Address City/State/ZIP Code Phon e Number [facility] [address] [place] [address] C Reactive Protein (CRP) (03/12/2022 10:01 AM CDT) athologist Signature C-Reactive <0.5 0.0 - 0.7 03/12/2022 [place] Protein mg/dL 2:49 PM CDT LABORATORY Specimen Anatomical Collection Method / Collection Time Recei mac Time (Source) Location / Volume Laterality Blood Venipuncture / 03/12/2022 10:01 2 Unknown AM CDT 10:01 AM CDT Randall Parker PA-C LAB_1 Performing Organization Address City/[facility]/ZIP Code Phon e Number [facility] [address] [place], [place] [phone] documented in this encounter Visit Diagnoses Diagnosis Axillary mass, bilateral - Primary Hypertriglyceridemia (HRC) Pure hyperglyceridemia Screen for colon cancer Special screening for malignant neoplasm s, colon Screening for prostate cancer Special screening for malignant neoplasm of prostate Screening for diabetes mellitus Axillary mass, bilateral Axillary mass, bilateral documented in this encounter
== END 2022-08-20 08:44 | disposition home or self-care (01) ==
LOC: OP CLINIC 08:45
PROVIDERS: PCP Internal Medicine; Visit Provider Surgery
DX: Z12.11 Encounter for screening for malignant neoplasm of colon (principal); K63.5 Polyp of colon
CPT/HCPCS: 45385; 88305; 99153; J2250; J3010

== ENCOUNTER 2024-03-19 11:10 | Emergency (ER) | payer OTHER, SELFPAY ==
[2024-03-19 11:18] VITALS: BP 132/78; PULSE 74; RESP 16; TEMP 36.6; O2SAT 94; BMI 32.3
--- NOTE | 2024-03-19 11:25 | US_ITS ---
Patient: AMRITA BAEZ Facility:?[facility] Patient ID:?[id number] Site Patient ID:?[id number]. Site :?1970 Study:?US-Extremity LE venous-03/19/2024 12:12:27 PM Ordering Physician:Jai Stapleton Final Report: INDICATION: Right leg swelling and pain COMPARISON: None available. FINDINGS: Ultrasound of the venous drainage of the right lower extremity shows no evidence of deep venous thrombosis. There is normal antegrade flow from the posterior tibial and popliteal veins superiorly through the common femoral vein. There is normal augmentation and compressibility of these veins. The left common femoral vein is widely patent. IMPRESSION: No evidence of deep venous thrombosis on ultrasound examination of the right lower extremity. Dictated by Jarod Barr MD @ 03/19/2024 12:25:31 PM Signed by:?Jarod Barr MD @03/19/2024 12:25:31 PM (Electronic Signature)
--- NOTE | 2024-03-19 11:57 | ED_ITS ---
HPI - General Adult General Date Seen: 03/19/24 Chief complaint: Extremity Pain/Injury, Lower Stated complaint: blood clot Time Seen by Provider: 03/19/24 11:56 History of Present Illness HPI narrative: 53-year-old gentleman with history of hypertriglyceridemia, but I have is a very healthy, sent to the ER today from clinic for evaluation of right lower leg swelling and pain that began this morning. He has no history of diabetes, cancer, immunosuppression, previous blood clots or any hypercoagulability. He has been healthy and well lately. No recent travel. He was doing a lot of planting yesterday and spent quite a few hours and his tractor. He was mostly sitting but did do some up and down out of the tractor. No pain or trouble with his leg yesterday. He was feeling fine when he went to bed. This morning he woke up at, he was experiencing a lot of pain in his right anterior mid yao. It was uncomfortable when he got of bed and made him almost fall. No other symptoms. He feels like a little bit swollen there and notes the skin is now turning a little bit red. No pain more proximally in the leg. No low back pain. No left leg symptoms. No chest pain or shortness of breath. No fever or chills or body aches.. No chest pain or shortness of breath. He was referred to the ER by his clinic. Related Data Home Medications Medication Instructions Recorded Confirmed calcium carbonate (Tums) 200 mg PO BID 07/03/22 03/19/24 Previous Rx's Medication Instructions Recorded fenofibrate 160 mg tablet 160 mg PO QDAY #90 tabs 07/25/22 cephalexin 500 mg capsule 500 mg PO TID 7 days #21 caps 03/19/24 Allergies Allergy/AdvReac Type Severity Reaction Status Date / Time chlorhexidine AdvReac Mild skin rash, Verified 03/19/24 11:24 itching isopropyl alcohol AdvReac Mild skin rash, Verified 03/19/24 11:24 itching PFSH [facility] Medical History (Updated 03/19/24 @ 12:44 by Jai Blanton MD) Colon cancer screening ?Z12.11 - Encounter for screening for malignant neoplasm of colon (ICD-10) Anxiety ?F41.9 - Anxiety disorder, unspecified (ICD-10) Surgical History (Updated 07/02/22 @ 15:41 by Davis Kincaid) Status post open reduction with internal fixation (ORIF) of fracture of ankle ?Z98.890 - Other specified postprocedural states (ICD-10) ?Z87.81 - Personal history of (healed) traumatic fracture (ICD-10) Family History (Updated 07/02/22 @ 15:42 by Davis Kincaid) Uncle Coronary artery disease Prostate cancer Father Coronary artery disease Hyperlipidemia Social History (Updated 07/02/22 @ 15:42 by Davis Kincaid) Narrative: does not use illicit drugs nonsmoker rarely consumes alcohol Smoking Status: Never smoker Do you use any of these nicotine containing products: None How often do you have a drink containing alcohol: monthly or less AUDIT-C Alcohol total score: 1 Non-prescribed substance use: denies use Exam Narrative: Exam Narrative: Constitutional: Appears well-developed and well-nourished. Alert. Conversant. Non toxic. HENT: Head: Atraumatic. Nose: Nose normal. Mouth/Throat: Oral mucosa is clear and moist. no trismus. Eyes: Conjunctivae normal. EOM normal. Pupils equal, round, and reactive to light. No scleral icterus. Neck: Normal range of motion. Neck supple. No tracheal deviation present. Cardiovascular: Normal rate, regular rhythm. No gallop. No friction rub. No murmur heard. Symmetric DP and PT artery pulses Pulmonary/Chest: Effort normal. No stridor. No respiratory distress. No wheezes. No rales. No rhonchi . No tenderness. Abdominal: Soft. Bowel sounds normal. No distension. No mass. No tenderness. No rebound. No guarding. Musculoskeletal: RUE: Normal range of motion. No tenderness. No deformity LUE: Normal range of motion. No tenderness. No deformity RLE: Normal range of motion. No tenderness. No deformity. He does have subtle pretibial edema and an area that is roughly lexii-shaped of very subtle redness and warmth affecting the patient's mid anterior yao approximately senior living from the knee to the anterior ankle. There is a chronic scar there this actually present symmetrical and both of his shins. I suspect this may be from rubbing from the top of his boots but this certainly no open injury or blister or open wound. Erythema and warmth with redness or suspicious for probably early evolving cellulitis. No gastrocnemius tenderness. No palpable cord. Achilles nontender. Normal range of motion in the knee. Normal range of motion in the ankle. Foot nontender. No pain or tenderness in the quadriceps, hams trings, thigh. LLE: Normal range of motion. No edema. No tenderness. No deformity Lymph: No ascending lymphangitis Neurological: Alert and oriented to person, place, and time. Normal strength. CN II-VII intact. No sensory deficit. GCS eye subscore is 4. GCS verbal subscore is 5. GCS motor subscore is 6. Normal coordination Skin: Skin is warm and dry. No rash noted. No pallor. Normal capillary refill. Psychiatric: Normal mood. Normal affect. Const: Vital Signs, click to edit/add: Vital Signs - 24 hr 03/19/24 11:18 Temperature 97.8 F Pulse Rate [Pulse Oximeter] 74 Respiratory Rate 16 Blood Pressure [Ri ght Upper Arm] 132/78 Pulse Oximetry 94 Oxygen Delivery Me thod Room Air Course Vital Signs Vital signs: Initial Vital Signs Temperature 97.8 F 03/19/24 11:18 Temperature Source Temporal Artery Scan 03/19/24 11:18 Pulse Rate 74 03/19/24 11:18 Respiratory Rate 16 03/19/24 11:18 Blood Pressure 132/78 03/19/24 11:18 Blood Pressure Mean 96 03/19/24 11:18 Blood Pressure Position Sitting 03/19/24 11:18 Pulse Oximetry 94 03/19/24 11:18 Oxygen Delivery Method Room Air 03/19/24 11:18 Vital Signs Temperature 97.8 F 03/19/24 11:18 Pulse Rate 74 03/19/24 11:18 Respiratory Rate 16 03/19/24 11:18 Blood Pressure 132/78 03/19/24 11:18 Pulse Oximetry 94 03/19/24 11:18 Oxygen Delivery Method Room Air 03/19/24 11:18 Temperature 97.8 F 03/19/24 11:18 Pulse Rate 74 03/19/24 11:18 Respiratory Rate 16 03/19/24 11:18 Blood Pressure 132/78 03/19/24 11:18 Pulse Oximetry 94 03/19/24 11:18 Oxygen Delivery Method Room Air 03/19/24 11:18 Medical Decision Making MDM Narrative Medical decision making narrative: This patient presents for evaluation of swelling and redness of his right mid yao. He was referred to the ER today by his clinic for evaluation of DVT because of his immobilization in the tractor yesterday. Venous ultrasound was obtained (ordered at triage) and is negative for DVT.. The history, physical exam is consistent with cellulitis. Given the circumscribed area of erythema and swelling I am highly suspicious this is cellulitis. There do not appear at this time to be any complication of cellulitis including abscess, necrotizing fascitis, lymphangitis, lymphadenitis, osteomyelitis, sepsis, or shock. The patient is not immunosuppressed or diabetic. Supportive outpatient management is indicated with antibiotics. Cephalexin 500 mg t.i.d.. The patient is instructed to follow-up with primary care physician to ensure no progression and rapid resolution and given precautions to return if high fever, spread greater than 2cm outside of the marked area, worsening pain, vomiting or any other worsening. Questions answered and return precautions reviewed. Discussed with the patient that if his infection is not improving within the next 2-4 days or if he has worsening swelling, should return to the ER. If he does develop more diffuse swelling could would certainly repeat ultrasound to re-evaluate for DVT. And if he has signs of spreading redness or worsening infection, may need labs, IV antibiotics. Imaging Data US Venous RLE: Attestation: I have reviewed the pertinent imaging results. Radiologist's impression: IMPRESSION: No evidence of deep venous thrombosis on ultrasound examination of the right lower extremity. Discharge Plan Discharge Clinical Impression: Cellulitis Patient Disposition: Home, Self-Care Condition: Stable Instructions: Cellulitis (ED) Additional Instructions: At this time your ultrasound looks good-no blood clots!. He on we me examine your leg we can see that area of redness around the yao that is very suspicious for an infection. Were going to start you on antibiotics today. It should take 1 or 2 days of antibiotic therapy in the infection should be getting better. Watch the infected area carefully. If it is getting larger by more than 1 or 2 in or if you have other symptoms such as fever, chills, body aches, or weakness, come back to the ER right away to be rechecked. If you are still having pain after 3 or 4 days, please recheck with your doctor or come back to the ER for re-evaluation and repeat ultrasound of your leg. Prescriptions: New cephalexin 500 mg capsule 500 mg PO TID 7 Days Qty: 21 0RF No Action calcium carbonate [Tums] 200 mg calcium (500 mg) tablet,chewable 200 mg PO BID fenofibrate 160 mg tablet 160 mg PO QDAY Qty: 90 3RF Follow Up/Referrals: Dominick Gilliam MD [Primary Care Provider] - Stand Alone Forms: [facility] Info Instructions
--- OUTSIDE RECORDS SUMMARY | 2024-03-19 12:49 | XMS_ITS | Clinical Summary ---
Author Name Unknown Organization [facility] Address [address] [place] [address] Care Team Providers Care Public Policy Associate Name Role Phone Dominick Gilliam MD Primary Care Provider Allergies No known active allergies Social History Tobacco Use Types Packs/Day Years Used Date Smoking Tobacco: Never Assessed Adolescent Education Answer Date Record ed Getting School Help Needed Not on file 09/09 Sex and Gender Information Value Date Recorded Sex Assigned at Not on file Gender Identity Not on file Sexual Orientation Not on file Last Filed Vital Signs Vital Sign Reading Time Taken Comments Blood Pressure 130/82 10/02/2022 5:25 PM WHARF ATTENDANT Pulse 65 10/02/2022 5:25 PM WHARF ATTENDANT Temperature 36.3 ??C (97.4 ??F) 10/02/2022 12:[address] Respiratory Rate 18 10/02/2022 5:25 PM WHARF ATTENDANT Oxygen Saturation 99% 10/02/2022 5:25 PM WHARF ATTENDANT Inhaled Oxygen Concentration - - Weight 102.1 kg (225 lb) 10/02/2022 12:34 PM WHARF ATTENDANT Height 182.9 cm (6') 10/02/2022 12:34 PM WHARF ATTENDANT Body Mass Index 30.52 10/02/2022 12:34 PM WHARF ATTENDANT Plan of Treatment Health Maintenance Due Date Last Done Comments ADVANCE CARE PLANNING 1970 ANNUAL REVIEW OF HM ORDERS 1972 CT COLONOGRAPHY 1972 FIT 1972 FLEX SIG 1972 YEARLY PREVENTIVE VISIT 1972 sDNA (Cologuard) 1972 COLONOSCOPY 1982 COLORECTAL CANCER SCREENING 1982 HIV SCREENING 1987 HEPATITIS C SCREENING 1990 HEPATITIS B IMMUNIZATION (1 of 3 - 19+ 3-dose series) 1991 LIPID 2012 ZOSTER IMMUNIZATION (1 of 2) 2022 COVID-19 Vaccine (4 - season) 2023 11/08/2021, 03/13/2021, 02/20/2021 INFLUENZA VACCINE (#1) 2023 2, 11/08/2021, 09/05/2020, Additional history exists PHQ-2 (once per calendar year) 2023 GLUCOSE 10/02/2025 10/02/2022 DTAP/TDAP/TD IMMUNIZATION (2 - Td or Tdap) 12/07/2025 12/07/2015 HPV IMMUNIZATION Aged Out No longer e ligible based on patient's age to complete this topic IPV IMMUNIZATION Aged Out No longer e ligible based on patient's age to complete this topic MENINGITIS IMMUNIZATION Aged Out No l onger eligible based on patient's age to complete this topic Pneumococcal Vaccine: Pediatrics (0 to 5 Years) and At-Risk Patients (6 to 64 Years) Aged Out No longer eligible based on patient's age to complete this topic RSV MONOCLONAL ANTIBODY Aged Out No l onger eligible based on patient's age to complete this topic Procedures Procedure Name Priority Date/Time Associated Diagnosis Comments BASIC METABOLIC PANEL STAT 10/02/2022 12:46 PM WHARF ATTENDANT from Last 3 Months or Most Recently Relevant to Health Maintenance Results * Basic metabolic panel (10/02/2022 12:46 PM WHARF ATTENDANT) Sodium 139 133 - 144 mmol/L 10/02/2022 1:23 PM [facility] Potassium 4.0 3.4 - 5.3 mmol/L 10/02/2022 1:23 PM [facility] Chloride 105 94 - 109 mmol/L 10/02/2022 1:23 PM [facility] Carbon Dioxide (CO2) 25 20 - 32 mmol/L 10/02/2022 1:23 PM [facility] Anion Gap 9 3 - 14 mmol/L 10/02/2022 1:23 PM [facility] Urea Nitrogen 19 7 - 30 mg/dL 10/02/2022 1:23 PM [facility] Creatinine 0.86 0.66 - 1.25 mg/dL 10/02/2022 1:23 PM [facility] Calcium 9.1 8.5 - 10.1 mg/dL 10/02/2022 1:23 PM [facility] Glucose 85 70 - 99 mg/dL 10/02/2022 1:23 PM [facility] GFR Estimate >90 >60 mL/min/1.7 3m2 10/02/2022 1:23 PM [facility] Comment:Effective October 252020 eGFRcr in adults is calculated using the 2020 CKD-EPI creatinine equation which includes age and gender (Mckinley et al., NEJM, DOI: 10.1056/MKSIdr2827944) Blood STRUCTURE OF LEFT UPPER LIMB / Unknown Venipuncture / Unknown 10/02/2022 12:46 PM WHARF ATTENDANT 10/02/2022 12:57 PM WHARF ATTENDANT Jai Tomlin AB - BLOOD ORDERABLES LABORATORY [facility] [address], [address] [place] [address], [facility] [phone] from Last 3 Months or Most Recently Relevant to Health Maintenance Care Teams Public Policy Associate Relationship Specialty Start Date End Date Dominick Gilliam MD [facility] [address] [place] [address] PCP - General Emergency Medicine 10/02/22
--- OUTSIDE RECORDS SUMMARY | 2024-03-19 12:49 | XMS_ITS | Clinical Summary ---
Author Name Unknown Organization [facility] Address [address] [place] [address] Care Team Providers Care Swimming Professor Name Role Phone Unavailable Primary Care Provider Unavailabl e Source Comments You are receiving this document as you are listed as the primary care provider,follow-up provider, or the patient has been referred to you for consultation.This is in compliance with the Medicare and[facility] EHR Incentive Program,which states Providers who transition their patient to another setting of careor provider of care or refers their patient to another provider of care shouldprovide summary care record for each transition of care or referral. [facility] Allergies No known active allergies Medications Medication Sig Dispensed Refills Start Date End Date Status fenofibrate (LOFIBRA) 160 MG tablet Take 160 mg by mouth daily. Active Active Problems Problem Noted Date Diagnosed Date Hypertriglyceridemia 03/11/2022 Immunizations Name Administration Dates Next Due Flu Vac Preserv Free (3+yrs) 12/04/2012,08/14/20,11/05/2010 Flublok (RIV4) 11/08/2021 Influenza Y4X2-32 09/21/2009 Influenza IIV4 (Quadrivalent ) 0.5mL (41133) 09/05/2020,10/06/2019,12/22/2017, 016 Moderna Monovalent 12+ 11/08/2021 Pfizer Monovalent 12+ Purple Top 03/13/2021,03/ Tdap 12/07/2015 Family History Medical History Relation Name Comments Cancer, Breast Sister Rimma Cancer, Ovary Negative Family History Relation Name Status Comments Father Alive Mother Alive Sister Rimma Social History Tobacco Use Types Packs/Day Years Used Date Smoking Tobacco: Never Smokeless Tobacco: Never Alcohol Use Standard Drinks/Week Comments Yes 0 (1 standard drink = 0.6 oz pur e alcohol) PHQ-2 Answer Date Recorded PHQ-2 Score 0 03/11/2022 Sex and Gender Information Value Date Recorded [...] Last Done Comments Colon Cancer Screening Plan Due 1972 Hep C Screening (Preventive Services) 1972 HIV Screening (Preventive Services) 1988 Adult Preventive Visit 1990 HepB (1) 1991 Zoster/Shingles (1 of 2) 2022 PSA Screening Discussion 03/12/2023 03/12/2022 COVID-19 Vaccine ( season) 2023 11/08/2021, 03/13/2021, 02/20/2021 Influenza (#1) 2023 11/08/2021, 08/24, 10/06/2019, Additional history exists DTaP/Tdap/Td (2 - Tdap) 12/07/2025 12/07/2015 Cholesterol 03/12/2027 03/12/2022 HepA Aged Out No longer eligi ble based on patient's age to complete this topic Hib Aged Out No longer eligi ble based on patient's age to complete this topic IPV (Polio) Aged Out No longer eligi ble based on patient's age to complete this topic MCV4 Aged Out No longer eligi ble based on patient's age to complete this topic Pneumococcal Aged Out No longer eligi ble based on patient's age to complete this topic Procedures Procedure Name Priority Date/Time Associated Diagnosis Comments PROSTATIC SPECIFIC ANTIGEN (DIAGNOSTIC F/U) Routine 03/12/2022 10:01 AM CDT Screening for prostate cancer LIPID PANEL & DIRECT LDL (IF NEEDED) Routine 03/12/2022 10:01 AM CDT Hypertriglyceridemi a from Last 3 Months or Most Recently Relevant to Health Maintenance Results * (ABNORMAL) Lipid Panel - LDLD If Trig High (03/12/2022 10:01 AM CDT) Cholesterol 194 0 - 199 mg/dL 03/12/2022 2:49 PM CDT [facility] Triglyceride 244(H) <=149 mg/dL 03/12/2022 2:49 PM CDT [facility] HDL Cholesterol 31(L) >=40 mg/dL 2 2:49 PM CDT [facility] LDL, Calculated 114 <130 mg/dL 2 2:49 PM CDT [facility] Non HDL Chol, Calculated 163(H) <=159 mg/dL 03/12/2022 2:49 PM T [facility] Cholesterol/HDL Ratio 6.3 03/12/2022 2:49 PM T [facility] Hours Fasting 13 03/12/2022 2:49 PM T [facility] Blood Venipuncture / Unknown 03/12/2022 10:01 AM CDT 03/12/2022 10:01 AM CDT Randall Parker PA-C LAB_1 [facility] [address] [place] [address], [facility] [phone] [facility] [address] [place] [address], [facility] [phone] * PSA Tumor Marker (Prostatic Specific Antigen) (03/12/2022 10:01 AM CDT) Prostatic Specific Antigen 0.4 0.0 - 4.0 ng/mL 03/12/2022 4:07 PM CDT [facility] Blood Venipuncture / Unknown 03/12/2022 10:01 AM CDT 03/12/2022 10:01 AM CDT Narrative [facility] - 03/12/2022 4:07 PM CDT The [employer] PSA Chemiluminescent immunoassay is used. Results obtained with different test methods or kits cannot be used interchangeably. Randall Parker PA-C LAB_1 [facility] [address] [place] [address], [facility] from Last 3 Months or Most Recently Relevant to Health Maintenance
--- OUTSIDE RECORDS SUMMARY | 2024-03-19 12:49 | XMS_ITS | Clinical Summary ---
Author Name Unknown Organization [facility] Address [place], [place] [address] Care Team Providers Care Plant Inspector Name Role Phone Jarod Soni MD Primary Care Provider [phone] Allergies No known active allergies Social History Tobacco Use Types Packs/Day Years Used Date Smoking Tobacco: Never Assessed Sex and Gender Information Value Date Recorded [...] 95.3 kg (210 lb) 11/07/2010 8:20 AM CHECKER IN Height 182.9 cm (6') 11/07/2010 8:20 AM CHECKER IN Body Mass Index 28.48 11/07/2010 8:20 AM CHECKER IN Plan of Treatment Health Maintenance Due Date Last Done Comments Tdap 1983 Depression screening for age 12+ 1984 HIV for age 15-65 1987 BMI (ht and wt on same day) for age 18+ 1990 Hepatitis C screening for ag e 18-79 1990 Tetanus booster 1992 Colonoscopy through age 75 2017 Lipids for age 45-75 2017 Zoster (shingles) series for age 50+ (1 of 2) 2022 COVID-19 vaccine series ( - season) 2023 03/13/2021, 02/20/2021 Influenza for age 50-64 07/25/2024 Pneumococcal series for age 6-64 Aged Out No longer eligible b ased on patient's age to complete this topic Care Teams Plant Inspector Relationship Specialty Start Date End Date Jarod Soni MD PCP - General Internal Medicine 10/24/10
--- OUTSIDE RECORDS SUMMARY | 2024-03-19 12:49 | XMS_ITS | Referral Summary ---
Author Name Unknown Organization [facility] Address [address] [place] [address] Care Team Providers Care Racing Car Driver Name Role Phone Dominick Gilliam MD Primary [...] Comments Blood Pressure 130/82 10/02/2022 5:25 PM AIRCRAFT MACHINIST Pulse 65 10/02/2022 5:25 PM AIRCRAFT MACHINIST Temperature 36.3 ??C (97.4 ??F) 10/02/2022 12:[address] Respiratory Rate 18 10/02/2022 5:25 PM AIRCRAFT MACHINIST Oxygen Saturation 99% 10/02/2022 5:25 PM AIRCRAFT MACHINIST Inhaled Oxygen Concentration - - Weight 102.1 kg (225 lb) 10/02/2022 12:34 PM AIRCRAFT MACHINIST Height 182.9 cm (6') 10/02/2022 12:34 PM AIRCRAFT MACHINIST Body Mass Index 30.52 10/02/2022 12:34 PM AIRCRAFT MACHINIST Plan of Treatment Not on file Procedures Procedure Name Priority Date/Time Associated Diagnosis Comments BASIC METABOLIC PANEL STAT 10/02/2022 12:46 PM AIRCRAFT MACHINIST from Last 3 Months or Most Recently Relevant to Health Maintenance Results * Basic metabolic panel (10/02/2022 12:46 PM AIRCRAFT MACHINIST) Sodium 139 133 - 144 mmol/L 10/02/2022 1:23 PM [facility] Potassium 4.0 3.4 - 5.3 mmol/L 10/02/2022 1:[address] [facility] Chloride 105 94 - 109 mmol/L 10/02/2022 1:[address] [facility] Carbon Dioxide (CO2) 25 20 - 32 mmol/L 10/02/2022 1:[address] [facility] Anion Gap 9 3 - 14 mmol/L 10/02/2022 1:[address] [facility] Urea Nitrogen 19 7 - 30 mg/dL 10/02/2022 1:[address] [facility] Creatinine 0.86 0.66 - 1.25 mg/dL 10/02/2022 1:[address] [facility] Calcium 9.1 8.5 - 10.1 mg/dL 10/02/2022 1:[address] [facility] Glucose 85 70 - 99 mg/dL 10/02/2022 1:[address] [facility] GFR Estimate >90 >60 mL/min/1.7 3m2 10/02/2022 1:[address] [facility] Comment:Effective October 252020 eGFRcr in adults is calculated using the 2020 CKD-EPI creatinine equation which includes age and gender (Mckinley et al., NEJM, DOI: 10.1056/ZGYOql6535877) Blood STRUCTURE OF LEFT UPPER LIMB / Unknown Venipuncture / Unknown 10/02/2022 12:46 PM AIRCRAFT MACHINIST 10/02/2022 12:57 PM AIRCRAFT MACHINIST Jai Tomlin AB - BLOOD ORDERABLES LABORATORY [facility] [address], [address] [place] [address], [facility] [phone] from Last 3 Months or Most Recently Relevant to Health Maintenance Care Teams Racing Car Driver Relationship Specialty Start Date End Date Dominick Gilliam MD [facility] [address] [place] [address] PCP - General Emergency Medicine 10/02/22
== END 2024-03-19 13:25 | disposition home or self-care (01) ==
LOC: ED 12:47
PROVIDERS: Emergency Provider Emergency Medicine; PCP Internal Medicine
DX: L03.115 Cellulitis of right lower limb (principal)
CPT/HCPCS: 93971; 99283; 99284

== ENCOUNTER 2024-03-26 09:31 | Outpatient (CLI) | payer OTHER, SELFPAY ==
--- OUTSIDE RECORDS SUMMARY | 2024-03-26 09:34 | XMS_ITS | Clinical Summary ---
Author Name Unknown Organization [facility] Address [address] [place] [address] Care Team Providers Care Web Weaver Name Role Phone Unavailable Primary Care Provider Unavailabl e Source Comments You are receiving this document as you are listed as the primary care provider,follow-up provider, or the patient has been referred to you for consultation.This is in compliance with the Medicare and[facility] EHR Incentive Program,which states Providers who transition [...] Free (3+yrs) 12/04/2012,08/14/20,11/05/2010 Flublok (RIV4) 11/08/2021 Influenza D4S0-45 09/21/2009 Influenza IIV4 (Quadrivalent ) 0.5mL (67587) 09/05/2020,10/06/2019,12/22/2017, 016 Moderna Monovalent 12+ 11/08/2021 Pfizer [...] - 199 mg/dL 03/12/2022 2:49 PM CDT [facility] Triglyceride 244(H) <=149 mg/dL 03/12/2022 2:49 PM CDT [facility] HDL Cholesterol 31(L) >=40 mg/dL 2 2:49 PM CDT [facility] LDL, Calculated 114 <130 mg/dL 2 2:49 PM CDT [facility] Non HDL Chol, Calculated 163(H) <=159 mg/dL 03/12/2022 2:49 PM T [facility] Cholesterol/HDL Ratio 6.3 03/12/2022 2:49 PM T [facility] Hours Fasting 13 03/12/2022 2:49 PM T [facility] Blood Venipuncture / Unknown 03/12/2022 10:01 AM CDT 03/12/2022 10:01 AM CDT Randall Parker PA-C LAB_1 [facility] [address] [place] [address], [facility] [phone] [facility] [address] [place] [address], [facility] [phone] * PSA Tumor Marker (Prostatic Specific Antigen) (03/12/2022 10:01 AM CDT) Prostatic Specific Antigen 0.4 0.0 - 4.0 ng/mL 03/12/2022 4:07 PM CDT [facility] Blood Venipuncture / Unknown 03/12/2022 10:01 AM CDT 03/12/2022 10:01 AM CDT Narrative [facility] - 03/12/2022 4:07 PM CDT The Lubin PSA Chemiluminescent immunoassay is used. Results obtained with different test methods or kits cannot be used interchangeably. Randall Parker PA-C LAB_1 [facility] [address] [place] [address], [facility] from Last 3 Months or Most Recently Relevant to Health Maintenance
--- OUTSIDE RECORDS SUMMARY | 2024-03-26 09:34 | XMS_ITS | Clinical Summary ---
Author Name Unknown Organization [facility] Address [address] [place] [address] Care Team Providers Care Printing And Stamping Supervisor Name Role Phone Dominick Gilliam MD Primary [...] Comments Blood Pressure 130/82 10/02/2022 5:25 PM TRANSPORTATION ATTENDANT Pulse 65 10/02/2022 5:25 PM TRANSPORTATION ATTENDANT Temperature 36.3 ??C (97.4 ??F) 10/02/2022 12:[address] Respiratory Rate 18 10/02/2022 5:25 PM TRANSPORTATION ATTENDANT Oxygen Saturation 99% 10/02/2022 5:25 PM TRANSPORTATION ATTENDANT Inhaled Oxygen Concentration - - Weight 102.1 kg (225 lb) 10/02/2022 12:34 PM TRANSPORTATION ATTENDANT Height 182.9 cm (6') 10/02/2022 12:34 PM TRANSPORTATION ATTENDANT Body Mass Index 30.52 10/02/2022 12:34 PM TRANSPORTATION ATTENDANT Plan of Treatment Health Maintenance Due [...] BASIC METABOLIC PANEL STAT 10/02/2022 12:46 PM TRANSPORTATION ATTENDANT from Last 3 Months or Most Recently Relevant to Health Maintenance Results * Basic metabolic panel (10/02/2022 12:46 PM TRANSPORTATION ATTENDANT) Sodium 139 133 - 144 mmol/L 10/02/2022 1:23 PM [facility] Potassium 4.0 3.4 - 5.3 mmol/L 10/02/2022 1:23 PM TRANSPORTATION ATTENDANT [facility] Chloride 105 94 - 109 mmol/L 10/02/2022 1:23 PM [facility] Carbon Dioxide (CO2) 25 20 - 32 mmol/L 10/02/2022 1:23 PM [facility] Anion Gap 9 3 - 14 mmol/L 10/02/2022 1:23 PM TRANSPORTATION ATTENDANT [facility] Urea Nitrogen 19 7 - 30 mg/dL 10/02/2022 1:23 PM [facility] Creatinine 0.86 0.66 - 1.25 mg/dL 10/02/2022 1:23 PM TRANSPORTATION ATTENDANT [facility] Calcium 9.1 8.5 - 10.1 mg/dL 10/02/2022 1:23 PM TRANSPORTATION ATTENDANT [facility] Glucose 85 70 - 99 mg/dL 10/02/2022 1:23 PM TRANSPORTATION ATTENDANT [facility] GFR Estimate >90 >60 mL/min/1.7 3m2 10/02/2022 1:23 PM [facility] Comment:Effective October 252020 eGFRcr in adults is calculated using the 2020 CKD-EPI creatinine equation which includes age and gender (Mckinley et al., NEJM, DOI: 10.1056/XBQOjj9625964) Blood STRUCTURE OF LEFT UPPER LIMB / Unknown Venipuncture / Unknown 10/02/2022 12:46 PM TRANSPORTATION ATTENDANT 10/02/2022 12:57 PM TRANSPORTATION ATTENDANT Jai Tomlin AB - BLOOD ORDERABLES LABORATORY [facility] [address], [address] [place] [address], [facility] [phone] from Last 3 Months or Most Recently Relevant to Health Maintenance Care Teams Printing And Stamping Supervisor Relationship Specialty Start Date End Date Dominick Gilliam MD [facility] [address] [place] [address] PCP - General Emergency Medicine 10/02/22
--- OUTSIDE RECORDS SUMMARY | 2024-03-26 09:34 | XMS_ITS | Clinical Summary ---
Author Name Unknown Organization [facility] Address [place], [place] [address] Care Team Providers Care Knowledge Management Advisor Name Role Phone Jarod Soni MD Primary Care Provider [phone] Allergies No known active allergies Social History [...] 95.3 kg (210 lb) 11/07/2010 8:20 AM CORPORATE DIRECTOR TALENT ASSESSMENT Height 182.9 cm (6') 11/07/2010 8:20 AM CORPORATE DIRECTOR TALENT ASSESSMENT Body Mass Index 28.48 11/07/2010 8:20 AM CORPORATE DIRECTOR TALENT ASSESSMENT Plan of Treatment Health Maintenance Due Date [...] age to complete this topic Care Teams Knowledge Management Advisor Relationship Specialty Start Date End Date Jarod Soni MD PCP - General Internal Medicine 10/24/10
--- OUTSIDE RECORDS SUMMARY | 2024-03-26 09:34 | XMS_ITS | Referral Summary ---
Author Name Unknown Organization [facility] Address [address] [place] [address] Care Team Providers Care Process Planner Name Role Phone Dominick Gilliam MD Primary [...] Comments Blood Pressure 130/82 10/02/2022 5:25 PM STRIPPING AND BOOKING MACHINE OPERATOR Pulse 65 10/02/2022 5:25 PM STRIPPING AND BOOKING MACHINE OPERATOR Temperature 36.3 ??C (97.4 ??F) 10/02/2022 12:[address] Respiratory Rate 18 10/02/2022 5:25 PM STRIPPING AND BOOKING MACHINE OPERATOR Oxygen Saturation 99% 10/02/2022 5:25 PM STRIPPING AND BOOKING MACHINE OPERATOR Inhaled Oxygen Concentration - - Weight 102.1 kg (225 lb) 10/02/2022 12:34 PM STRIPPING AND BOOKING MACHINE OPERATOR Height 182.9 cm (6') 10/02/2022 12:34 PM STRIPPING AND BOOKING MACHINE OPERATOR Body Mass Index 30.52 10/02/2022 12:34 PM STRIPPING AND BOOKING MACHINE OPERATOR Plan of Treatment Not on file Procedures Procedure Name Priority Date/Time Associated Diagnosis Comments BASIC METABOLIC PANEL STAT 10/02/2022 12:46 PM STRIPPING AND BOOKING MACHINE OPERATOR from Last 3 Months or Most Recently Relevant to Health Maintenance Results * Basic metabolic panel (10/02/2022 12:46 PM STRIPPING AND BOOKING MACHINE OPERATOR) Sodium 139 133 - 144 mmol/L 10/02/2022 1:23 PM STRIPPING AND BOOKING MACHINE [facility] Potassium 4.0 3.4 - 5.3 mmol/L 10/02/2022 1:23 PM [facility] Chloride 105 94 - 109 mmol/L 10/02/2022 1:23 PM [facility] Carbon Dioxide (CO2) 25 20 - 32 mmol/L 10/02/2022 1:23 PM [facility] Anion Gap 9 3 - 14 mmol/L 10/02/2022 1:23 PM [facility] Urea Nitrogen 19 7 - 30 mg/dL 10/02/2022 1:23 PM [facility] Creatinine 0.86 0.66 - 1.25 mg/dL 10/02/2022 1:23 PM [facility] Calcium 9.1 8.5 - 10.1 mg/dL 10/02/2022 1:23 PM [facility] Glucose 85 70 - 99 mg/dL 10/02/2022 1:23 PM [facility] GFR Estimate >90 >60 mL/min/1.7 3m2 10/02/2022 1:23 PM [facility] Comment:Effective October 252020 eGFRcr in adults is calculated using the 2020 CKD-EPI creatinine equation which includes age and gender (Mckinley et al., NEJM, DOI: 10.1056/ZXLZtu9920170) Blood STRUCTURE OF LEFT UPPER LIMB / Unknown Venipuncture / Unknown 10/02/2022 12:46 PM STRIPPING AND BOOKING MACHINE OPERATOR 10/02/2022 12:57 PM STRIPPING AND BOOKING MACHINE OPERATOR Jai Tomlin AB - BLOOD ORDERABLES LABORATORY [facility] [address], [address] [place] [address], [facility] [phone] from Last 3 Months or Most Recently Relevant to Health Maintenance Care Teams Process Planner Relationship Specialty Start Date End Date Dominick Gilliam MD [facility] [address] [place] [address] PCP - General Emergency Medicine 10/02/22
== END 2024-03-26 09:32 | disposition home or self-care (01) ==
PROVIDERS: PCP Internal Medicine; Visit Provider Family Medicine
DX: L03.115 Cellulitis of right lower limb (principal); Z13.228 Encounter for screening for other metabolic disorders
CPT/HCPCS: 80053

== ENCOUNTER 2024-03-26 10:00 | Outpatient (CLI) | payer OTHER, SELFPAY ==
--- OUTSIDE RECORDS SUMMARY | 2024-03-26 10:03 | XMS_ITS | Clinical Summary ---
Author Name Unknown Organization [facility] Address [address] [place] [address] Care Team Providers Care Mental Health Aides Teacher Name Role Phone Dominick Gilliam MD Primary [...] Comments Blood Pressure 130/82 10/02/2022 5:25 PM SENIOR TECHNICAL BUSINESS ANALYST Pulse 65 10/02/2022 5:25 PM SENIOR TECHNICAL BUSINESS ANALYST Temperature 36.3 ??C (97.4 ??F) 10/02/2022 12:[address] Respiratory Rate 18 10/02/2022 5:25 PM SENIOR TECHNICAL BUSINESS ANALYST Oxygen Saturation 99% 10/02/2022 5:25 PM SENIOR TECHNICAL BUSINESS ANALYST Inhaled Oxygen Concentration - - Weight 102.1 kg (225 lb) 10/02/2022 12:34 PM SENIOR TECHNICAL BUSINESS ANALYST Height 182.9 cm (6') 10/02/2022 12:34 PM SENIOR TECHNICAL BUSINESS ANALYST Body Mass Index 30.52 10/02/2022 12:34 PM SENIOR TECHNICAL BUSINESS ANALYST Plan of Treatment Health Maintenance Due Date [...] BASIC METABOLIC PANEL STAT 10/02/2022 12:46 PM SENIOR TECHNICAL BUSINESS ANALYST from Last 3 Months or Most Recently Relevant to Health Maintenance Results * Basic metabolic panel (10/02/2022 12:46 PM SENIOR TECHNICAL BUSINESS ANALYST) Sodium 139 133 - 144 mmol/L 10/02/2022 1:23 PM [facility] Potassium 4.0 3.4 - 5.3 mmol/L 10/02/2022 1:23 PM SENIOR TECHNICAL BUSINESS ANALYST LABORATORY Chloride 105 94 - 109 mmol/L 10/02/2022 1:23 PM [facility] Carbon Dioxide (CO2) 25 20 - 32 mmol/L 10/02/2022 1:23 PM [facility] Anion Gap 9 3 - 14 mmol/L 10/02/2022 1:23 PM SENIOR TECHNICAL BUSINESS ANALYST LABORATORY Urea Nitrogen 19 7 - 30 mg/dL 10/02/2022 1:23 PM [facility] Creatinine 0.86 0.66 - 1.25 mg/dL 10/02/2022 1:23 PM SENIOR TECHNICAL BUSINESS ANALYST LAB[facility]ATORY Calcium 9.1 8.5 - 10.1 mg/dL 10/02/2022 1:23 PM SENIOR TECHNICAL BUSINESS ANALYST LAB[facility]ATORY Glucose 85 70 - 99 mg/dL 10/02/2022 1:23 PM SENIOR TECHNICAL BUSINESS ANALYST LAB[facility]ATORY GFR Estimate >90 >60 mL/min/1.7 3m2 10/02/2022 1:23 PM [facility] Comment:Effective October 252020 eGFRcr in adults is calculated using the 2020 CKD-EPI creatinine equation which includes age and gender (Mckinley et al., NEJM, DOI: 10.1056/HFSIzj8609898) Blood STRUCTURE OF LEFT UPPER LIMB / Unknown Venipuncture / Unknown 10/02/2022 12:46 PM SENIOR TECHNICAL BUSINESS ANALYST 10/02/2022 12:57 PM SENIOR TECHNICAL BUSINESS ANALYST Jai Tomlin AB - BLOOD ORDERABLES LABORATORY [facility] [address], [address] [place] [address], [facility] [phone] from Last 3 Months or Most Recently Relevant to Health Maintenance Care Teams Mental Health Aides Teacher Relationship Specialty Start Date End Date Dominick Gilliam MD [facility] [address] [place] [address] PCP - General Emergency Medicine 10/02/22
--- OUTSIDE RECORDS SUMMARY | 2024-03-26 10:03 | XMS_ITS | Clinical Summary ---
Author Name Unknown Organization [facility] Address [address] [place] [address] Care Team Providers Care Maintenance And Repair Worker Name Role Phone Unavailable Primary Care Provider Unavailabl e Source Comments You are receiving this document as you are listed as the primary care provider,follow-up provider, or the patient has been referred to you for consultation.This is in compliance with the Medicare and[facility],which states Providers who transition [...] Free (3+yrs) 12/04/2012,08/14/20,11/05/2010 Flublok (RIV4) 11/08/2021 Influenza Q2D9-94 09/21/2009 Influenza IIV4 (Quadrivalent ) 0.5mL (65067) 09/05/2020,10/06/2019,12/22/2017, 016 Moderna Monovalent 12+ 11/08/2021 Pfizer [...] - 199 mg/dL 03/12/2022 2:49 PM CDT [facility] Triglyceride 244(H) <=149 mg/dL 03/12/2022 2:49 PM CDT [facility] HDL Cholesterol 31(L) >=40 mg/dL 2 2:49 PM CDT [facility] LDL, Calculated 114 <130 mg/dL 2 2:49 PM CDT [facility] Non HDL Chol, Calculated 163(H) <=159 mg/dL 03/12/2022 2:49 PM T [facility] Cholesterol/HDL Ratio 6.3 03/12/2022 2:49 PM T [facility] Hours Fasting 13 03/12/2022 2:49 PM T [facility] Blood Venipuncture / Unknown 03/12/2022 10:01 AM CDT 03/12/2022 10:01 AM CDT Randall Parker PA-C LAB_1 [facility] [address] [place] [address], [facility] [phone] [facility] [address] [place] [address], [facility] [phone] * PSA Tumor Marker (Prostatic Specific Antigen) (03/12/2022 10:01 AM CDT) Prostatic Specific Antigen 0.4 0.0 - 4.0 ng/mL 03/12/2022 4:07 PM CDT [facility] Blood Venipuncture / Unknown 03/12/2022 10:01 AM CDT 03/12/2022 10:01 AM CDT Narrative [facility] - 03/12/2022 4:07 PM CDT The Lubin PSA Chemiluminescent immunoassay is used. Results obtained with different test methods or kits cannot be used interchangeably. Randall Parker PA-C LAB_1 [facility] [address] [place] [address], [facility] from Last 3 Months or Most Recently Relevant to Health Maintenance
--- OUTSIDE RECORDS SUMMARY | 2024-03-26 10:03 | XMS_ITS | Referral Summary ---
Author Name Unknown Organization [facility] Address [address] [place] [address] Care Team Providers Care Retail Pharmacy Manager Name Role Phone Dominick Gilliam MD Primary [...] Comments Blood Pressure 130/82 10/02/2022 5:25 PM PRE ALGEBRA TEACHER Pulse 65 10/02/2022 5:25 PM PRE ALGEBRA TEACHER Temperature 36.3 ??C (97.4 ??F) 10/02/2022 12:[address] Respiratory Rate 18 10/02/2022 5:25 PM PRE ALGEBRA TEACHER Oxygen Saturation 99% 10/02/2022 5:25 PM PRE ALGEBRA TEACHER Inhaled Oxygen Concentration - - Weight 102.1 kg (225 lb) 10/02/2022 12:34 PM PRE ALGEBRA TEACHER Height 182.9 cm (6') 10/02/2022 12:34 PM PRE ALGEBRA TEACHER Body Mass Index 30.52 10/02/2022 12:34 PM PRE ALGEBRA TEACHER Plan of Treatment Not on file Procedures Procedure Name Priority Date/Time Associated Diagnosis Comments BASIC METABOLIC PANEL STAT 10/02/2022 12:46 PM PRE ALGEBRA TEACHER from Last 3 Months or Most Recently Relevant to Health Maintenance Results * Basic metabolic panel (10/02/2022 12:46 PM PRE ALGEBRA TEACHER) Sodium 139 133 - 144 mmol/L 10/02/2022 1:23 PM PRE [facility]GEB[facility] Potassium 4.0 3.4 - 5.3 mmol/L 10/02/2022 1:23 PM [facility] Chloride 105 94 - 109 mmol/L 10/02/2022 1:23 PM [facility] Carbon Dioxide (CO2) 25 20 - 32 mmol/L 10/02/2022 1:23 PM [facility] Anion Gap 9 3 - 14 mmol/L 10/02/2022 1:23 PM [facility] Urea Nitrogen 19 7 - 30 mg/dL 10/02/2022 1:23 PM [facility] Creatinine 0.86 0.66 - 1.25 mg/dL 10/02/2022 1:23 PM [facility] Calcium 9.1 8.5 - 10.1 mg/dL 10/02/2022 1:23 PM [facility] Glucose 85 70 - 99 mg/dL 10/02/2022 1:23 PM [facility] GFR Estimate >90 >60 mL/min/1.7 3m2 10/02/2022 1:23 PM [facility] Comment:Effective October 252020 eGFRcr in adults is calculated using the 2020 CKD-EPI creatinine equation which includes age and gender (Mckinley et al., NEJM, DOI: 10.1056/[id number]) Blood STRUCTURE OF LEFT UPPER LIMB / Unknown Venipuncture / Unknown 10/02/2022 12:46 PM PRE ALGEBRA TEACHER 10/02/2022 12:57 PM PRE ALGEBRA TEACHER Jai Tomlin AB - BLOOD ORDERABLES LABORATORY [facility] [address], [address] [place] [address], [facility] [phone] from Last 3 Months or Most Recently Relevant to Health Maintenance Care Teams Retail Pharmacy Manager Relationship Specialty Start Date End Date Dominick Gilliam MD [facility] [address] [place] [address] PCP - General Emergency Medicine 10/02/22
--- OUTSIDE RECORDS SUMMARY | 2024-03-26 10:03 | XMS_ITS | Clinical Summary ---
Author Name Unknown Organization [facility] Address [place], [place] [address] Care Team Providers Care Furrier Apprentice Name Role Phone Jarod Soni MD Primary Care Provider [phone] Allergies No known active allergies Social History [...] 95.3 kg (210 lb) 11/07/2010 8:20 AM AIRCRAFT MAINTENANCE MANAGER Height 182.9 cm (6') 11/07/2010 8:20 AM AIRCRAFT MAINTENANCE MANAGER Body Mass Index 28.48 11/07/2010 8:20 AM AIRCRAFT MAINTENANCE MANAGER Plan of Treatment Health Maintenance Due Date [...] age to complete this topic Care Teams Furrier Apprentice Relationship Specialty Start Date End Date Jarod Soni MD PCP - General Internal Medicine 10/24/10
--- NOTE | 2024-03-26 11:15 | US_ITS ---
Patient: AMRITA BAEZ Facility:?[facility] RIS Patient ID:?[id number] Site Patient ID:?[id number]. Site :?[id number] Study:?US-Extremity Right LEV RT-03/26/2024 10:50:52 AM Ordering Physician:?LAURA JOHNSON M.D. Final Report: Indication: Right lower extremity thrombophlebitis. Technique: Ultrasound examination of the right lower extremity venous system was performed. Grayscale, grayscale compression, Doppler and augmentation technique was utilized as per protocol. The left common femoral vein was also study Comparison: March 19, 2024 Findings: There is no evidence of right lower extremity deep venous thrombosis. A thin fluid collection is noted in the mid right calf adjacent to the tibia. This measures 3.9 x 0.4 centimeters. This is sonographically simple and probably represents a seroma, less likely a hematoma or infected fluid collection Impression: 1. There is no evidence of right lower extremity venous thrombosis. 2. Thin subcutaneous fluid collection in the calf probably a hematoma or seroma. Dictated by Jarod Barr MD @ 03/26/2024 11:03:10 AM Signed by:?Jarod Barr MD @03/26/2024 11:03:10 AM (Electronic Signature)
== END 2024-03-26 10:01 | disposition home or self-care (01) ==
PROVIDERS: PCP Internal Medicine; Visit Provider Family Medicine
DX: M79.604 Pain in right leg (principal); M79.89 Other specified soft tissue disorders
CPT/HCPCS: 93971

== ENCOUNTER 2024-05-19 07:27 | Outpatient (CLI) | payer OTHER, SELFPAY ==
--- OUTSIDE RECORDS SUMMARY | 2024-05-21 10:10 | XMS_ITS | Encounter Summary ---
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 This is not a sleep study order and must first be reviewed by a sleep specialist to determine the next steps. The review process looks at multiple factors including your insurance requirements, personal health history, and [employer] [employer] guidelines. This order will be reviewed within 1 business day and sent to scheduling for one of the following appointments: - Consultation/Office Visit with a Sleep Medicine Specialist - Consultation/Office Visit with an Insomnia Specialist - Portable/Home Sleep Test If you do not hear from our scheduling staff within the next 7 days, please contact us at [phone] and select option 1. Question Answer Appointment Urgency Non-Urgent Sleep Service Requested Sleep Test Other Pertinent History None Previously Diagnosed VARUN No Signs/Symptoms of VARUN Habitual or Disruptive Snoring Reason for visit Retinal vein occlusion, excessive snoring, r/o VARUN Comments Comments: Age/Sex: 53 y.o. / male Height: 03/11/22 : 1.829 m (6') Weight: 03/11/22 : 108.9 kg (240 lb) BMI: Estimated body mass index is 32.55 kg/m?? as calculated from the following: Height as of 03/11/22: 1.829 m (6'). Weight as of 03/11/22: 108.9 kg (240 lb). 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; Age-related nuclear cataract of both eyes Social History Tobacco Use Types Packs/Day Years Used Date Smoking Tobacco: Never Smokeless Tobacco: Never Alcohol Use Standard Drinks/Week Comments Yes 0 (1 standard drink = 0.6 oz pur e alcohol) PHQ-2 Answer Date Recorded PHQ-2 Score 0 03/11/2022 Sex and Gender Information Value Date Recorded Sex Assigned at Not on file Gender Identity Not on file Sexual Orientation Not on file documented as of this encounter Patient Instructions * Patient Instructions* Meghan Brooks COA - 05/14/2024 10:00 AM CDT Control your blood pressure, blood sugar and cholesterol. You received an intravitreal injection today to help control the swelling of the macula (the centerpart of the vision). Post-Injection Instructions : The eye may be watery and feel scratchy and irritated (like something is in your eye). This should resolve and the vision should be back to what it was before the treatment within 24 hours. It may be helpful to keep the eye closed or use [id number] artificial tears for comfort. You may see a bloody red spot on the white part of your eye at the injection site. This is normal and may spread around the eye. You may see floaters. (This is the medication.) If you see a shower of floaters, flashes of light or are missing a part of your side vision, please contact us immediately. No swimming or rubbing the eye for 3 days. After the day of the injection, you must call us immediately if you develop any of the following symptoms: Eye pain Decreased vision Redness involving all of the white part of your eye Sensitivity to light Eye discharge (other than tears/bloody tears) Call [phone] with any problems. documented in this encounter Progress Notes * Michael Younger MD - 05/14/2024 10:00 AM CDT First Visit with Referred by Dr. Shantel Mehta 05/13/24 Pertinent medical history: none The medications, allergies, and past medical and social histories in the medical record were reviewed. Review of Systems: Pertinent items are noted in patient history; the remainder of the complete review of systems is negative. General Medical Observation: Alert, appears well Ocular Surgeries and History: - Intac removal OU 2003 Retinal Imaging (All images were reviewed by Michael Younger MD): OCT of the right eye - VMA, Normal retinal contour/thickness, good foveal depression, (-) IRF, (-) SRF; OCT of the left eye - VMA, (+) IRF, (+) SRF; Optos Fundus Photos 05/14/24 OD - Clear media, normal C:D; macula flat w/o heme, AV knicking, retic degen, attached 360 OS - Clear media, normal C:D; Inf BRVO, (+) central edema, AV knicking, retic degen, attached 360 Optos IVFA 05/14/24 OD: Normal SHEFALI, (-) leakage OS: Normal fill, late macular leakage, inferior blocking, inferior vascular leakage, (-) periph ischemia Impression/Plan: #) BRVO, (+) edema, OS - Discussed the branch retinal vein occlusion and the vascular changes that occur. - Follow-up with Primary care for evaluation of cardiovascular risk factors. The most common causesof BRVOs are diabetes, HTN or high cholesterol - these need optimum medical management. Pt understands the importance of follow-up to monitor for the potential neovascular changes that may occur. - Patient does not see doctors regularly, disc f/u with medicine, prefers PCP outside - Snores excessively, recommend sleep study - Discussed the macular edema and the importance of early treatment for best visual acuity results. - reviewed the indications, risks, benefits and alternatives to treatment for the macular edema: Anti-VEGF (Avastin, Lucentis, Eylea), intravitreal steroids, laser. We discussed that superior visual acuity results are obtained with Anti- VEGF treatment early with possible supplementation of laser inthe future (after edema and hemorrhages have improved to help decrease the need for continued injections). Pt understands that even with treatment, given the underlying vascular changes, it is possible that vision will not improve. - Also understands that will likely need chronic treatment. - Pt elected to proceed with intravitreal Avastin and the informed consent was signed. Discussed off-label use and ATEs. Plan: - ARNIE OS #1, 05/14/24 - F/u in 4 weeks, rpt ARNIE OS - IVV PA request BP Readings from Last 1 Encounters: 03/11/22 134/76 #) Cataracts, OU - mild, no retinal contraindications to surgery #) Vitreous Syneresis, VMA, OU - No signs of RT/RD on exam 360, asymptomatic - Monitor #) Peripheral Reticular Degeneration, OU - mild, not visually signficant - No signs of heme or RT/RD - Maintain healthy lifestyle, no smoking, UV protection Plan and expectations discussed with the patient, who voiced understanding. Callback precautions discussed Follow up in 4wks, ARNIE OS #2, OCT OU, injxn only Prep: Tetracaine, Betadine, Urojet x1, Dr Younger to do [place] Consent verified for ARNIE OS; signed 05/14/24 Last DFE: 04/2024 PN, COA - acting as scribe for Michael Younger MD All notes completed by MD prior to signing Further details of the management plan can be found in the Patient Instructions section which wasprinted and given to the patient. Attending Physician Attestation: I, Dr. Michael Younger, attest that I have seen and evaluated this patient. Complete documentation of historical and exam elements from today's encounter can be found in the full encounter summary report (not reduplicated in this progress note). I personally obtained the chief complaint(s) and history of present illness. I confirmed and edited as necessary the review of systems, past medical/surgical history, family history, social history, and examination findings as documented by others; and I examined the patient myself. I personally reviewed the relevant tests, images, and reports as documented above. I formulated and edited as necessary the assessment and plan and discussed the findings and management plan with the patient and family- Michael Younger MD documented in this encounter Procedure Notes * Meghan Brooks COA - 05/14/2024 10:00 AM CDT Intravitreal Injection Operative Report Eye: Left Surgeon: Michael Younger MD Medicaton: Avastin 0.05 mL (1.25mg) Lot number: [id number], Exp 08/13/24 Anesthesia: proparacaine, lidocaine gel 5% povidone iodine after proparacaine. Lid speculum used. Injection site irrigated with 5% povidone iodine. 32-gauge needle used to inject 0.05 ml of medication 3.5 mm (pseudophakic)/4mm (phakic) posterior to the limbus inferotemporally. No complications. Post-injection VA at least count finger. Eye irrigated with sterile saline. Post-injection Instructions: The eye may be patched for up to 24 hours at the patient's discretion. No swimming, contact lens orrubbing the eye for 3 days. Use artificial tears as needed for discomfort. He was instructed to call immediately with any problems: pain, decreased vision, redness of the eye, floaters/flashes, sensitivity to light, ocular discharge, or the development of a peripheral shadow in the vision. documented in this encounter Plan of Treatment Upcoming Encounters Date Type Department Care Team (Late [facility]) Description 06/18/2024 1:45 PM CDT Appointment [place] [address] [place] [address]. 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
--- OUTSIDE RECORDS SUMMARY | 2024-05-21 10:10 | XMS_ITS | Referral Summary ---
Author Organization [facility] [place] [facility] Address [address] [place] [address] Care Team Providers Care Power Lineman Name Role Phone Dominick Gilliam MD Primary [...] Comments Blood Pressure 130/82 10/02/2022 5:25 PM FORGE TENDER Pulse 65 10/02/2022 5:25 PM FORGE TENDER Temperature 36.3 ??C (97.4 ??F) 10/02/2022 12:[address] Respiratory Rate 18 10/02/2022 5:25 PM FORGE TENDER Oxygen Saturation 99% 10/02/2022 5:25 PM FORGE TENDER Inhaled Oxygen Concentration - - Weight 102.1 kg (225 lb) 10/02/2022 12:34 PM FORGE TENDER Height 182.9 cm (6') 10/02/2022 12:34 PM FORGE TENDER Body Mass Index 30.52 10/02/2022 12:34 PM FORGE TENDER Plan of Treatment Not on file Procedures Procedure Name Priority Date/Time Associated Diagnosis Comments BASIC METABOLIC PANEL STAT 10/02/2022 12:46 PM FORGE TENDER from Last 3 Months or Most Recently Relevant to Health Maintenance Results * Basic metabolic panel (10/02/2022 12:46 PM FORGE TENDER) Sodium 139 133 - 144 mmol/L 10/02/2022 1:23 PM [facility] Potassium 4.0 3.4 - 5.3 mmol/L 10/02/2022 1:23 PM [facility] Chloride 105 94 - 109 mmol/L 10/02/2022 1:23 PM [facility] Carbon Dioxide (CO2) 25 20 - 32 mmol/L 10/02/2022 1:23 PM [facility] Anion Gap 9 3 - 14 mmol/L 10/02/2022 1:23 PM [facility] Urea Nitrogen 19 7 - 30 mg/dL 10/02/2022 1:23 PM [facility] Creatinine 0.86 0.66 - 1.25 mg/dL 10/02/2022 1:23 PM [facility] Calcium 9.1 8.5 - 10.1 mg/dL 10/02/2022 1:23 PM [facility] Glucose 85 70 - 99 mg/dL 10/02/2022 1:23 PM [facility] GFR Estimate >90 >60 mL/min/1.7 3m2 10/02/2022 1:23 PM [facility] Comment:Effective October 252020 eGFRcr in adults is calculated using the 2020 CKD-EPI creatinine equation which includes age and gender (Mckinley et al., NEJM, DOI: 10.1056/MTYFug5107630) Blood STRUCTURE OF LEFT UPPER LIMB / Unknown Venipuncture / Unknown 10/02/2022 12:46 PM FORGE TENDER 10/02/2022 12:57 PM FORGE TENDER Jai Tomlin AB - BLOOD ORDERABLES LABORATORY [facility] [address] 1[address] floor, [address] [place] [address], [facility] [place] [phone] from Last 3 Months or Most Recently Relevant to Health Maintenance Care Teams Power Lineman Relationship Specialty Start Date End Date Dominick Gilliam MD [facility] [address] [place] [address] PCP - General Emergency Medicine 10/02/22
--- OUTSIDE RECORDS SUMMARY | 2024-05-21 10:10 | XMS_ITS | Clinical Summary ---
Author Organization [facility] Address [address], [place] [address] Care Team Providers Care Director Counseling Bureau Name Role Phone Unavailable Primary Care Provider Unavailabl e Source Comments You are receiving this document as you are listed as the primary care provider,follow-up provider, or the patient has been referred to you for consultation.This is in compliance with the Medicare and[facility] EHR Incentive Program,which states Providers who transition their patient to another setting of careor provider of care or refers their patient to another provider of care shouldprovide summary care record for each transition of care or referral. [facility] Allergies No known active allergies Medications Medication Sig Dispensed Refills Start Date End Date Status fenofibrate (LOFIBRA) 160 MG tablet Take 1 Tablet (160 mg) by mouth daily. Active Active Problems Problem Noted Date Diagnosed Date Hypertriglyceridemia 03/11/2022 Encounters Date Type Department Care Team Description 05/18/2024 Notes/Orders [facility] [address] [facility] [place] [address] Michael Younger MD VARUN (obstructive sleep apnea) (Primary Dx) 05/14/2024 10:00 AM CDT Office Visit [facility] [address] [facility] 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 [address] Self-Referral, Patient, MD VISION, BLURRED; VISION, PROBLEM from Last 3 Months Immunizations Name Administration Dates Next Due Flu Vac Preserv Free (3+yrs) 12/04/2012,08/14/20 11,11/05/2010 Flublok (RIV4) 11/08/2021 Influenza A5S6-00 09/21/2009 Influenza IIV4 (Quadrivalent ) 0.5mL ([id number]) 09/05/2020,10/06/2019,12/22/2017, 016 Moderna Monovalent 12+ 11/08/2021 Pfizer Monovalent 12+ Purple Top 03/13/2021,03/3 Tdap 12/07/2015 Family History Medical History Relation Name Comments Cataract Father Macular Degeneration Mother Cancer, Breast Sister Rimma Cancer, Ovary Negative Family History Glaucoma Negative Family History Retinal Detachment Negative Family History Relation Name Status Comments [...] 03/11/2022 1:05 PM CDT Plan of Treatment Upcoming Encounters Date Type Department Care Team (Late st Contact Info) Description 06/18/2024 1:45 PM CDT Appointment [facility] [address] [facility] [place] [address] Michael Younger MD [address] [place] [address] Health Maintenance Due Date Last Done Comments Colon Cancer Screening Plan Due 1972 Hep C Screening (Preventive Services) 1972 HIV Screening (Preventive Services) 1988 Adult Preventive Visit 1990 HepB (1) 1991 PSA Screening Discussion 03/12/2023 03/12/2022 COVID-19 Vaccine ( season) 2023 11/08/2021, 03/13/2021, 02/20/2021 DTaP/Tdap/Td (2 - Tdap) 12/07/2025 12/07/2015 Cholesterol 03/12/2027 03/12/2022 Influenza Completed 10/05/2023, 08/25, 11/08/2021, Additional history exists Zoster/Shingles Completed 02/14/2024, 07/16/2023 HepA Aged Out No longer eligi ble [...] - 199 mg/dL 03/12/2022 2:49 PM CDT [facility] Triglyceride 244(H) <=149 mg/dL 03/12/2022 2:49 PM CDT [facility] HDL Cholesterol 31(L) >=40 mg/dL 2 2:49 PM CDT [facility] LDL, Calculated 114 <130 mg/dL 2 2:49 PM CDT [facility] Non HDL Chol, Calculated 163(H) <=159 mg/dL 03/12/2022 2:49 PM CDT [facility] Cholesterol/HDL Ratio 6.3 03/12/2022 2:49 PM CDT [facility] Hours Fasting 13 03/12/2022 2:49 PM CDT [facility] Blood Venipuncture / Unknown 03/12/2022 10:01 AM CDT 03/12/2022 10:01 AM CDT Randall Parker PA-C LAB_1 [facility] [address] [place] [address], [facility] [phone] [facility] [address] [place] [address], [facility] [phone] * PSA Tumor Marker (Prostatic Specific Antigen) (03/12/2022 10:01 AM CDT) Prostatic Specific Antigen 0.4 0.0 - 4.0 ng/mL 03/12/2022 4:07 PM T [facility] Blood Venipuncture / Unknown 03/12/2022 10:01 AM CDT 03/12/2022 10:01 AM CDT Narrative [facility] - 03/12/2022 4:07 PM CDT The [facility] PSA Chemiluminescent immunoassay is used. Results obtained with different test methods or kits cannot be used interchangeably. Randall Parker PA-C LAB_1 [facility] [address] [place], [place] [address] from Last 3 Months or Most Recently Relevant to Health Maintenance
--- OUTSIDE RECORDS SUMMARY | 2024-05-21 10:10 | XMS_ITS | Clinical Summary ---
Author Organization [facility] Address [address] [place] [address] Care Team Providers Care Seasonal Recruiter Name Role Phone Dominick Gilliam MD Primary [...] Comments Blood Pressure 130/82 10/02/2022 5:25 PM UNDERWRITING SUPPORT MANAGER Pulse 65 10/02/2022 5:25 PM UNDERWRITING SUPPORT MANAGER Temperature 36.3 ??C (97.4 ??F) 10/02/2022 12:[address] Respiratory Rate 18 10/02/2022 5:25 PM UNDERWRITING SUPPORT MANAGER Oxygen Saturation 99% 10/02/2022 5:25 PM UNDERWRITING SUPPORT MANAGER Inhaled Oxygen Concentration - - Weight 102.1 kg (225 lb) 10/02/2022 12:34 PM UNDERWRITING SUPPORT MANAGER Height 182.9 cm (6') 10/02/2022 12:34 PM UNDERWRITING SUPPORT MANAGER Body Mass Index 30.52 10/02/2022 12:34 PM UNDERWRITING SUPPORT MANAGER Plan of Treatment Health Maintenance Due [...] IMMUNIZATION (1 of 2) 2022 COVID-19 Vaccine ( - season) 2023 11/08/2021, 03/13/2021, 02/20/2021 PHQ-2 (once per calendar year) 2023 INFLUENZA VACCINE (Season Ended) 2024 09/15/2022, 11/08/2021, 09/05/2020, Additional history exists GLUCOSE 10/02/2025 10/02/2022 DTAP/TDAP/TD IMMUNIZATION (2 - [...] BASIC METABOLIC PANEL STAT 10/02/2022 12:46 PM UNDERWRITING SUPPORT MANAGER from Last 3 Months or Most Recently Relevant to Health Maintenance Results * Basic metabolic panel (10/02/2022 12:46 PM UNDERWRITING SUPPORT MANAGER) Sodium 139 133 - 144 mmol/L 10/02/2022 1:23 PM [facility] Potassium 4.0 3.4 - 5.3 mmol/L 10/02/2022 1:23 PM UNDERWRITING SUPPORT MANAGER [facility] Chloride 105 94 - 109 mmol/L 10/02/2022 1:23 PM [facility] Carbon Dioxide (CO2) 25 20 - 32 mmol/L 10/02/2022 1:23 PM [facility] Anion Gap 9 3 - 14 mmol/L 10/02/2022 1:23 PM UNDERWRITING SUPPORT MANA[facility] Urea Nitrogen 19 7 - 30 mg/dL 10/02/2022 1:23 PM [facility] Creatinine 0.86 0.66 - 1.25 mg/dL 10/02/2022 1:23 PM UNDERWRITING SUPPORT MA[facility] Calcium 9.1 8.5 - 10.1 mg/dL 10/02/2022 1:23 PM UNDERWRITING SUPPORT MANAGER [facility] Glucose 85 70 - 99 mg/dL 10/02/2022 1:23 PM UNDERWRITING SUPPORT MANA[facility] GFR Estimate >90 >60 mL/min/1.7 3m2 10/02/2022 1:23 PM UNDERWRITING SUPPORT MANAGER [facility] Comment:Effective October 252020 eGFRcr in adults is calculated using the 2020 CKD-EPI creatinine equation which includes age and gender (Mckinley et al., NEJM, DOI: 10.1056/XGSEgi2437550) Blood STRUCTURE OF LEFT UPPER LIMB / Unknown Venipuncture / Unknown 10/02/2022 12:46 PM UNDERWRITING SUPPORT MANAGER 10/02/2022 12:57 PM UNDERWRITING SUPPORT MANAGER Jai Tomlin AB - BLOOD ORDERABLES LABORATORY [facility] [address] floor, [address] [place] [address], [facility] [phone] from Last 3 Months or Most Recently Relevant to Health Maintenance Care Teams Seasonal Recruiter Relationship Specialty Start Date End Date Dominick Gilliam MD [facility] [address] [place] [address] PCP - General Emergency Medicine 10/02/22
--- OUTSIDE RECORDS SUMMARY | 2024-05-21 10:10 | XMS_ITS | Encounter Summary ---
Author Organization [employer] Address [address] [address] Care Team Providers Care Spud Grader Name Role Phone Unavailable Primary Care Provider Unavailabl e Reason for Visit * Reason Comments Eye Problem Encounter Details Date Type Department Care Team (Late st Contact Info) Description 05/13/2024 2:20 PM CDT Office Visit [facility] [address] 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 General: Generally healthy appearing. Alert and oriented x 3. Subjective: See tech note for today, agree. Assessment: ICD-10-CM 1. 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 Family history of macular degeneration Z83.518 Plan: Plan: 1: Branch Retinal Vein Occlusion LE with macular edema. Discussed a BRVO including slow or sudden painless, monocular blurred vision or vision loss. Discussed etiologies of sudden painless vision loss including diabetes, high blood pressure, glaucoma, and hardening of the arteries. Discussed that tr eatment of a BRVO may include an intravitreal injection to help alleviate swelling and help improvevision. I recommend referral to a retina specialist urgently. Appointment offered tomorrow morning at 10:00am which patient accepted. Also recommend the patient make an appointment to see a PCP - Ryder states he has not had a physical in over 2 years. 2: +Fhx of macular degeneration in mother. Educated patient on importance of annual dilated eye exams. Monitor. History of Intacs corneal surgery BE about 20 years ago. Were only in for about 2 months before they were removed. Patient [place] [facility] [place] but unable to identify clinic/surgeon name. Return to clinic tomorrow with retina specialist or sooner as needed. OCT Results -OCT Macula on 05/13/2024 RE: Intact foveal contour, no fluidCentral thickness: 291 LE: Disrupted foveal contour with PED and fluid extending from inferior arcades. Central thickness:366 Images/scans available in Forum documented in this encounter Plan of Treatment Upcoming Encounters Date Type Department Care Team (Late st Contact Info) Description 06/18/2024 1:45 PM CDT Appointment [facility] [address] 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
--- OUTSIDE RECORDS SUMMARY | 2024-05-21 10:10 | XMS_ITS | Encounter Summary ---
Author Organization [facility] [facility] [employer] [facility] Address [address], [place] [address] Care Team Providers Care Reference Test Clerk Name Role Phone Unavailable Primary Care Provider Unavailabl e Reason for Referral * Procedure/Equipment (Routine) - Authorized Specialty Diagnoses / Procedures Referred By Contac t Referred To Contact Diagnoses VARUN (obstructive sleep apnea) Procedures Sleep Diagnostic Tests: HST Michael Younger MD [address] [place] [address] Referral ID Status Reason Start Date Expiration Date V isits Requested Visits Authorized [id number] Authorized 05/18/2024 08/17/2025 1 1 Encounter Details Date Type Department Care Team (Late st Contact Info) Description 05/18/2024 Notes/Orders [address] [place], [place] [id number] Michael Younger MD [address] [place], [place] [address] VARUN (obstructive sleep apnea) (Primary Dx) Social History Tobacco Use Types Packs/Day Years [...] as of this encounter Plan of Treatment Upcoming Encounters Date Type Department Care Team (Late st Contact Info) Description 06/18/2024 1:[address] [facility] [address] [facility] [address] Michael Younger MD [address] [place], [place] [id number] Scheduled Orders Name Type Priority Associated Diagnoses Orde r Schedule Sleep Diagnostic Tests: HST Sleep Study Routine VARUN (obstructive sleep apnea) 1 Occurrences starting 05/18/2024 documented as of this encounter Visit Diagnoses Diagnosis VARUN (obstructive sleep apnea)- Primary Obstructive sleep apnea (adult) (pediatric) documented in this encounter
--- OUTSIDE RECORDS SUMMARY | 2024-05-21 10:10 | XMS_ITS | Encounter Summary ---
Author Organization [email or web address] Address [address] [place] [address] Care Team Providers Care Chief Operator Synthesis Name Role Phone Unavailable Primary Care Provider Unavailabl e Reason for Visit * Reason Comments VISION, BLURRED VISION, PROBLEM Encounter Details Date Type Department Care Team (Late st Contact Info) Description 05/13/2024 Telephone [facility] 39[address] Ophthalmology [address] [facility] [place] [address] Self-Referral, Patient, [place] [address] VISION, BLURRED; VISION, PROBLEM Social History Tobacco Use Types Packs/Day Years [...] on file documented as of this encounter Nursing Notes * Molly Sam - 05/13/2024 1:50 PM CDT Since yesterday va in LE has been blurry, darker va in center and it moves with his eye. Sometime he notices wavy line on straight objects. No flashes or floaters. * Ameena Collins - 05/13/2024 1:36 PM CDT Symptoms Describe your symptoms (include right eye, left eye, or both eyes): Dark vision in LE with blurry vision When did they start? Yesterday Are symptoms worsening, or are they about the same since they began? Symptoms more noticeable today - vision seem darker today Have you experience anything similar to this before (if yes, add details)? No Patient used amsler grid and the lines looked wavy in vision. [/Appt Center: If this call is after 4 p.m., communicate to patient: If you do not receive a call back today, your message will be returned the next business day.] documented in this encounter Plan of Treatment Upcoming Encounters Date Type Department Care Team (Late st Contact Info) Description 06/18/2024 1:45 PM CDT Appointment [facility] [address] [facility]. [place], [place] [id number] Mcihael Younger MD [address] [place] [address] documented as of this encounter Visit Diagnoses Not on filedocumented in this encounter
--- OUTSIDE RECORDS SUMMARY | 2024-05-21 10:10 | XMS_ITS | Clinical Summary ---
Author Organization [employer] [facility] Address [place], [place] [address] Care Team Providers Care Learning Coordinator Name Role Phone Jarod Soni MD Primary Care Provider [phone] Allergies No known active allergies Social History [...] 95.3 kg (210 lb) 11/07/2010 8:20 AM CINEMA OR THEATRE MANAGER Height 182.9 cm (6') 11/07/2010 8:20 AM CINEMA OR THEATRE MANAGER Body Mass Index 28.48 11/07/2010 8:20 AM CINEMA OR THEATRE MANAGER Plan of Treatment Upcoming Encounters Date Type Department Care Team (Late st Contact Info) Description 05/24/2024 9:00 AM CDT Ancillary Procedure [facility] [address] [place] [address] Health Maintenance Due Date Last Done Comments [...] (1 of 2) 2022 COVID-19 vaccine series (3 - 2022-24 season) 2023 03/13/2021, 02/20/2021 Influenza for age 50-64 07/25/2024 Pneumococcal series for age 6-64 Aged Out No longer eligible b ased on patient's age to complete this topic Care Teams Learning Coordinator Relationship Specialty Start Date End Date Jarod Soni MD PCP - General Internal Medicine 10/24/10
== END 2024-05-19 07:28 | disposition home or self-care (01) ==
LOC: NFLDREF 05-21 10:09
PROVIDERS: PCP Internal Medicine; Referring Provider Internal Medicine; Visit Provider Internal Medicine
DX: E78.1 Pure hyperglyceridemia (principal)
CPT/HCPCS: 80053; 80061

== ENCOUNTER 2024-05-24 08:48 | Outpatient (CLI) | payer OTHER, SELFPAY ==
--- OUTSIDE RECORDS SUMMARY | 2024-05-24 08:50 | XMS_ITS | Encounter Summary ---
Author Organization [employer] Address [address], [place] [address] Care Team Providers Care Flour Broker Name Role Phone Unavailable Primary Care Provider Unavailabl e Reason for Visit * Reason Comments Eye Problem Encounter Details Date Type Department Care Team (Late st Contact Info) Description 05/13/2024 2:20 PM CDT Office Visit [facility] [address] [facility], [address] [place] [address] Shantel Mehta, OD [address] [facility] [address] [place] [address] Hemispheric branch retinal vein occlusion (BRVO) of [...] Patient states was done somewhere in the [facility] area but unable to identify clinic/surgeon name. [...] Info) Description 06/18/2024 1:45 PM CDT Appointment [facility] [address] Ret[address] [facility] 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
--- OUTSIDE RECORDS SUMMARY | 2024-05-24 08:50 | XMS_ITS | Clinical Summary ---
Author Organization [employer] Address [address] [place] [address] Care Team Providers Care Data Examination Clerk Name Role Phone Dominick Gilliam MD Primary [...] Comments Blood Pressure 130/82 10/02/2022 5:25 PM CASINO FLOOR RUNNER Pulse 65 10/02/2022 5:25 PM CASINO FLOOR RUNNER Temperature 36.3 ??C (97.4 ??F) 10/02/2022 12:[address] Respiratory Rate 18 10/02/2022 5:25 PM CASINO FLOOR RUNNER Oxygen Saturation 99% 10/02/2022 5:25 PM CASINO FLOOR RUNNER Inhaled Oxygen Concentration - - Weight 102.1 kg (225 lb) 10/02/2022 12:34 PM CASINO FLOOR RUNNER Height 182.9 cm (6') 10/02/2022 12:34 PM CASINO FLOOR RUNNER Body Mass Index 30.52 10/02/2022 12:34 PM CASINO FLOOR RUNNER Plan of Treatment Health Maintenance Due Date [...] BASIC METABOLIC PANEL STAT 10/02/2022 12:46 PM CASINO FLOOR RUNNER from Last 3 Months or Most Recently Relevant to Health Maintenance Results * Basic metabolic panel (10/02/2022 12:46 PM CASINO FLOOR RUNNER) Sodium 139 133 - 144 mmol/L 10/02/2022 1:23 PM [facility] Potassium 4.0 3.4 - 5.3 mmol/L 10/02/2022 1:23 PM [facility] Chloride 105 94 - 109 mmol/L 10/02/2022 1:23 PM [facility] Carbon Dioxide (CO2) 25 20 - 32 mmol/L 10/02/2022 1:23 PM [facility] Anion Gap 9 3 - 14 mmol/L 10/02/2022 1:23 PM [facility] Urea Nitrogen 19 7 - 30 mg/dL 10/02/2022 1:23 PM [facility] Creatinine 0.86 0.66 - 1.25 mg/dL 10/02/2022 1:23 PM [facility] Calcium 9.1 8.5 - 10.1 mg/dL 10/02/2022 1:23 PM [facility] Glucose 85 70 - 99 mg/dL 10/02/2022 1:23 PM [facility] GFR Estimate >90 >60 mL/min/1.7 3m2 10/02/2022 1:23 PM [facility] Comment:Effective October 252020 eGFRcr in adults is calculated using the 2020 CKD-EPI creatinine equation which includes age and gender (Mckinley et al., NEJM, DOI: 10.1056/TOBOff4586012) Blood STRUCTURE OF LEFT UPPER LIMB / Unknown Venipuncture / Unknown 10/02/2022 12:46 PM CASINO FLOOR RUNNER 10/02/2022 12:57 PM CASINO FLOOR RUNNER Jai Tomlin AB - BLOOD ORDERABLES LABORATORY [facility] [address] floor, [address] [place] [address], [facility] [phone] from Last 3 Months or Most Recently Relevant to Health Maintenance Care Teams Data Examination Clerk Relationship Specialty Start Date End Date Dominick Gilliam MD [facility] [address] [place] [address] PCP - General Emergency Medicine 10/02/22
--- OUTSIDE RECORDS SUMMARY | 2024-05-24 08:50 | XMS_ITS | Clinical Summary ---
Author Organization [employer] [facility] Address [place], [place] [address] Care Team Providers Care Stage Hand Name Role Phone Jarod Soni MD Primary [...] 95.3 kg (210 lb) 11/07/2010 8:20 AM WELDER 2ND SHIFT Height 182.9 cm (6') 11/07/2010 8:20 AM WELDER 2ND SHIFT Body Mass Index 28.48 11/07/2010 8:20 AM WELDER 2ND SHIFT Plan of Treatment Upcoming Encounters Date Type Department Care Team (Late st Contact Info) Description 05/24/2024 9:00 AM CDT Ancillary Procedure [facility] [address] [place] [address] Health Maintenance Due Date Last Done Comments [...] age to complete this topic Care Teams Stage Hand Relationship Specialty Start Date End Date Jarod Soni MD PCP - General Internal Medicine 10/24/10
--- OUTSIDE RECORDS SUMMARY | 2024-05-24 08:50 | XMS_ITS | Encounter Summary ---
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 This is not a sleep study order and must first be reviewed by a sleep specialist to determine the next steps. The review process looks at multiple factors including your insurance requirements, personal health history, and [place] [employer] guidelines. This order will be reviewed within 1 business day and sent to scheduling for one of the following appointments: - Consultation/Office Visit with a Sleep Medicine Specialist - Consultation/Office Visit with an Insomnia Specialist - Portable/Home Sleep Test If you do not hear from our scheduling staff within the next 7 days, please contact us at [phone] and select option 1. Question Answer Appointment [...] 1.25 MG EYE Michael Younger MD [address] [place] [address] Referral ID Status Reason Start Date Expiration Date V isits Requested Visits Authorized [id number] New Request 05/14/2024 08/13/2025 1 1 Reason for Visit * Reason Comments CONSULT Encounter Details Date Type Department Care Team (Late st Contact Info) Description 05/14/2024 10:00 AM CDT Office Visit [facility] [address] [place] [address] [place] [address] [place] [address] Hemispheric branch retinal vein occlusion (BRVO) of [...] to keep the eye closed or use [id number] artificial tears for comfort. You may see [...] Eye discharge (other than tears/bloody tears) Call [phone] with any problems. documented in this encounter [...] Medicaton: Avastin 0.05 mL (1.25mg) Lot number: [id number], Exp 08/13/24 Anesthesia: proparacaine, lidocaine gel 5% [...] Encounters Date Type Department Care Team (Late [facility]) Description 06/18/2024 1:45 PM CDT Appointment [place] [address] [place] [address]. [place] [address] Michael Younger MD [address] [place] [phone] Scheduled Referrals Name Type Priority Associated Diagnoses [...]
--- OUTSIDE RECORDS SUMMARY | 2024-05-24 08:50 | XMS_ITS | Encounter Summary ---
Author Organization [employer] Address [address] [place] [address] Care Team Providers Care Global President Name Role Phone Unavailable Primary Care Provider Unavailabl e Reason for Visit * Reason Comments VISION, BLURRED VISION, PROBLEM Encounter Details Date Type Department Care Team (Late st Contact Info) Description 05/13/2024 Telephone [facility] [place] [facility] [address] Ophthalmology [address] [facility] [place] [address] Self-Referral, Patient, [place] [address] VISION, BLURRED; VISION, PROBLEM Social [...] Info) Description 06/18/2024 1:45 PM CDT Appointment [facility] [address] [facility] [place], [place] [id number] Michael Younger MD [address] [place] [address] documented as of this encounter Visit Diagnoses Not on filedocumented in this encounter
--- OUTSIDE RECORDS SUMMARY | 2024-05-24 08:50 | XMS_ITS | Clinical Summary ---
Author Organization [employer] Address [address], [place] [address] Care Team Providers Care Gis Programmer Name Role Phone Unavailable Primary Care Provider Unavailabl e Source Comments You are receiving this document as you are listed as the primary care provider,follow-up provider, or the patient has been referred to you for consultation.This is in compliance with the Medicare and[facility] EHR Incentive Program,which states Providers who transition their patient to another setting of careor provider of care or refers their patient to another provider of care shouldprovide summary care record for each transition of care or referral. [employer] Allergies No known active allergies Medications Medication Sig Dispensed Refills Start Date End Date Status fenofibrate (LOFIBRA) 160 MG tablet Take 1 Tablet (160 mg) by mouth daily. Active Active Problems Problem Noted Date Diagnosed Date Hypertriglyceridemia 03/11/2022 Encounters Date Type Department Care Team Description 05/18/2024 Notes/Orders [facility] [address] [place] [address] Michael Younger MD VARUN (obstructive sleep apnea) (Primary Dx) 05/14/2024 10:00 AM CDT Office Visit [facility] [address] 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 [address] Self-Referral, Patient, [place] VISION, BLURRED; VISION, PROBLEM from Last 3 Months Immunizations Name Administration Dates Next Due Flu Vac Preserv Free (3+yrs) 12/04/2012,08/14/20 11,11/05/2010 Flublok (RIV4) 11/08/2021 Influenza [id number] 09/21/2009 Influenza IIV4 (Quadrivalent ) 0.5mL ([id number]) 09/05/2020,10/06/2019,12/22/2017, 016 Moderna Monovalent 12+ 11/08/2021 Pfizer [...] [facility] [address] [facility] [place] [address] Mcihael Younger MD [address] [place] [address] Health Maintenance Due Date Last Done Comments [...] - 199 mg/dL 03/12/2022 2:49 PM CDT [facility] Triglyceride 244(H) <=149 mg/dL 03/12/2022 2:49 PM CDT [facility] HDL Cholesterol 31(L) >=40 mg/dL 2 2:49 PM CDT [facility] LDL, Calculated 114 <130 mg/dL 2 2:49 PM CDT [facility] Non HDL Chol, Calculated 163(H) <=159 mg/dL 03/12/2022 2:49 PM CDT [facility] Cholesterol/HDL Ratio 6.3 03/12/2022 2:49 PM CDT [facility] Hours Fasting 13 03/12/2022 2:49 PM CDT [facility] Blood Venipuncture / Unknown 03/12/2022 10:01 AM CDT 03/12/2022 10:01 AM CDT Randall Parker PA-C LAB_1 [facility] [address] [place] [address], [facility] [phone] [facility] [address] [place] [address], [facility] [phone] * PSA Tumor Marker (Prostatic Specific Antigen) (03/12/2022 10:01 AM CDT) Prostatic Specific Antigen 0.4 0.0 - 4.0 ng/mL 03/12/2022 4:07 PM T [facility] Blood Venipuncture / Unknown 03/12/2022 10:01 AM CDT 03/12/2022 10:01 AM CDT Narrative [facility] - 03/12/2022 4:07 PM CDT The [employer] PSA Chemiluminescent immunoassay is used. Results obtained with different test methods or kits cannot be used interchangeably. Randall Parker PA-C LAB_1 [facility] [address] [place], [place] [address] from Last 3 Months or Most Recently Relevant to Health Maintenance
--- OUTSIDE RECORDS SUMMARY | 2024-05-24 08:50 | XMS_ITS | Referral Summary ---
Author Organization [facility] Address [address] [place] [address] Care Team Providers Care Die Out Worker Name Role Phone Dominick Gilliam MD Primary [...] Comments Blood Pressure 130/82 10/02/2022 5:25 PM CLINICAL EDITOR Pulse 65 10/02/2022 5:25 PM CLINICAL EDITOR Temperature 36.3 ??C (97.4 ??F) 10/02/2022 12:[address] Respiratory Rate 18 10/02/2022 5:25 PM CLINICAL EDITOR Oxygen Saturation 99% 10/02/2022 5:25 PM CLINICAL EDITOR Inhaled Oxygen Concentration - - Weight 102.1 kg (225 lb) 10/02/2022 12:34 PM CLINICAL EDITOR Height 182.9 cm (6') 10/02/2022 12:34 PM CLINICAL EDITOR Body Mass Index 30.52 10/02/2022 12:34 PM CLINICAL EDITOR Plan of Treatment Not on file Procedures Procedure Name Priority Date/Time Associated Diagnosis Comments BASIC METABOLIC PANEL STAT 10/02/2022 12:46 PM CLINICAL EDITOR from Last 3 Months or Most Recently Relevant to Health Maintenance Results * Basic metabolic panel (10/02/2022 12:46 PM CLINICAL EDITOR) Sodium 139 133 - 144 mmol/L 10/02/2022 1:23 PM CLINICAL EDITOR LABORATORY Potassium 4.0 3.4 - 5.3 mmol/L 10/02/2022 1:23 PM [facility] Chloride 105 94 - 109 mmol/L 10/02/2022 1:23 PM [facility] Carbon Dioxide (CO2) 25 20 - 32 mmol/L 10/02/2022 1:23 PM [facility] Anion Gap 9 3 - 14 mmol/L 10/02/2022 1:23 PM [facility] Urea Nitrogen 19 7 - 30 mg/dL 10/02/2022 1:23 PM [facility] Creatinine 0.86 0.66 - 1.25 mg/dL 10/02/2022 1:23 PM [facility] Calcium 9.1 8.5 - 10.1 mg/dL 10/02/2022 1:23 PM [facility] Glucose 85 70 - 99 mg/dL 10/02/2022 1:23 PM [facility] GFR Estimate >90 >60 mL/min/1.7 3m2 10/02/2022 1:23 PM [facility] Comment:Effective October 252020 eGFRcr in adults is calculated using the 2020 CKD-EPI creatinine equation which includes age and gender (Mckinley et al., NEJM, DOI: 10.1056/CVKMep7200078) Blood STRUCTURE OF LEFT UPPER LIMB / Unknown Venipuncture / Unknown 10/02/2022 12:46 PM CLINICAL EDITOR 10/02/2022 12:57 PM CLINICAL EDITOR Jai Tomlin AB - BLOOD ORDERABLES LABORATORY [facility] [address] floor, [address] [place] [address], [facility] [phone] from Last 3 Months or Most Recently Relevant to Health Maintenance Care Teams Die Out Worker Relationship Specialty Start Date End Date Dominick Gilliam MD [facility] [address] [place] [address] PCP - General Emergency Medicine 10/02/22
--- OUTSIDE RECORDS SUMMARY | 2024-05-24 08:50 | XMS_ITS | Encounter Summary ---
Author Organization [facility] Address [address], [place] [address] Care Team Providers Care Special Education Teacher Name Role Phone Unavailable Primary Care Provider Unavailabl e Reason for Referral * Procedure/Equipment (Routine) - Authorized Specialty Diagnoses / Procedures Referred By Contac t Referred To Contact Diagnoses VARUN (obstructive sleep apnea) Procedures Sleep Diagnostic Tests: HST Michael Younger MD [address] [place] [address] Referral ID Status Reason Start Date Expiration Date V isits Requested Visits Authorized [id number] Authorized 05/18/2024 08/17/2025 1 1 Encounter Details Date Type Department Care Team (Late st Contact Info) Description 05/18/2024 Notes/Orders [address] [place], [place] [id number] Michael Younger MD [address] [place], [place] [address] VARUN (obstructive sleep apnea) (Primary Dx) Social [...] Info) Description 06/18/2024 1:45 PM CDT Appointment [facility] [address] [facility] [address] Michael Younger MD [address] [place], [place] [id number] Scheduled Orders Name Type Priority Associated Diagnoses Orde r Schedule Sleep Diagnostic Tests: HST Sleep Study Routine VARUN (obstructive sleep apnea) 1 Occurrences starting 05/18/2024 documented as of this encounter Visit Diagnoses Diagnosis VARUN (obstructive sleep apnea)- Primary Obstructive sleep apnea (adult) (pediatric) documented in this encounter
== END 2024-05-24 08:49 | disposition home or self-care (01) ==
PROVIDERS: PCP Internal Medicine; Visit Provider Internal Medicine
DX: E78.1 Pure hyperglyceridemia (principal)
CPT/HCPCS: 93306

== ENCOUNTER 2025-02-04 11:05 | Outpatient (CLI) | payer OTHER, SELFPAY ==
--- NOTE | 2025-02-04 13:30 | CRLHL7_ITS ---
For Patients: As a result of the Century Cures Act, medical imaging exams and procedure reports are released immediately into your electronic medical record. You may view this report before your referring provider. If you have questions, please contact your health care provider. CLINICAL HISTORY: Retinal hemorrhage TECHNIQUE: The carotid circulations and the vertebral arteries in the neck were examined with smalls-scale ultrasound, color-flow and Doppler spectral analysis. Degrees of stenosis were determined using SRU 2002 Consensus Panel Criteria. FINDINGS: Sonographic images demonstrate bilateral atherosclerotic plaque formation without suspicious soft tissue mass. There was antegrade blood flow demonstrated within the vertebral arteries and the subclavian arteries demonstrated a normal triphasic waveform. The spectral Doppler tracings of the common carotid, internal and external carotid arteries demonstrate no abnormal turbulence or spectral broadening. There was significant elevation of peak systolic blood flow within the proximal left ICA measuring 138 cm/second which would indicate a hemodynamically-significant stenosis by SRU criteria. The ICA/CCA peak systolic velocity ratio measures 0.7 on the right and 1.0 on the left. Velocity within the right subclavian artery measures 278 cm/second and within the left subclavian artery measuring 190 cm/second. IMPRESSION: 50-69 percent stenosis of the proximal left internal carotid artery. Less than 50 percent stenosis of the right internal carotid artery. Elevated velocities within the subclavian arteries, right greater than left. Dictated by Danilo Flores MD @ 02/04/2025 2:39:44 PM (Electronically Signed)
== END 2025-02-04 11:06 | disposition home or self-care (01) ==
LOC: US 11:06
PROVIDERS: PCP Internal Medicine; Visit Provider Internal Medicine
DX: H35.60 Retinal hemorrhage, unspecified eye (principal); I65.23 Occlusion and stenosis of bilateral carotid arteries
CPT/HCPCS: 93880

== ENCOUNTER 2025-04-20 14:03 | Outpatient (CLI) | payer OTHER, SELFPAY ==
--- NOTE | 2025-04-20 14:30 | MR_ITS ---
EXAM: MRI of the RIGHT KNEE, without contrast CLINICAL INFORMATION: Male, 54 years old, with right knee pain. INDICATION: Evaluate for meniscal tear. PRIOR SURGERY: None reported. PLAIN FILMS: Knee radiograph dated 04/11/2025. COMPARISONS: No prior MRIs available. TECHNICAL INFORMATION: Using a 1.5T MR scanner and a localizing surface coil: sagittals: PD, PDFS coronals: PD, T2FS axials: PD, PDFS SEDATION: None CONTRAST: None FINDINGS: Knee joint: Effusion: Small right knee effusion. Popliteal cyst: None. Loose bodies: None. Subcutaneous and extra-articular soft tissues: Unremarkable. Ligaments: ACL: Intact ACL anteromedial and posterolateral bundles, without sprain or tear. PCL: Intact PCL, without acute or chronic injury. MCL: Mild thickening of the proximal one third of the superficial MCL, without MCL tear (coronal PD series 7 images 17-19). LCL: Intact LCL, without injury. Posterolateral corner: Mild popliteus tendinopathy, without tear. Biceps femoris, iliotibial band, popliteofibular ligament and lateral gastrocnemius are intact. Posteromedial corner: Mild semimembranosus tendinopathy, without tear. Pes anserine tendons and posterior oblique ligament are without injury, tendinopathy or bursitis. Extensor mechanism: Patellar tendon: Intact, without tendinopathy. Quadriceps tendon: Mild quadriceps insertional tendinopathy, without tear. Retinacula: Medial and lateral retinacula are intact. Fat pads: Unremarkable infrapatellar Hoffa's, quadriceps and prefemoral fat pads. Medial compartment: Medial meniscus: Intrasubstance degeneration and low-grade partial tearing of the medial meniscal posterior root with mild reactive edema in the underlying tibial plateau (sagittal PDFS series 6 image 17 and axial T2FS series 4 image 19). Medial femoral condyle & tibial plateau: Broad-based grade II chondromalacia throughout the central, weightbearing aspect of the medial compartment, with minimal marginal osteophytosis. Lateral compartment: Lateral meniscus: No articular surface, meniscosynovial junction or root tear. No displacement, extrusion or parameniscal cyst. Lateral femoral condyle: No chondromalacia or osteochondral abnormality. Lateral tibial plateau: No chondromalacia or osteochondral abnormality. Patellofemoral joint: Patella: Broad-based grade II/III chondromalacia medial facet and median ridge, with minimal marginal osteophytosis. Trochlea: Based grade III chondromalacia of the medial facet and central sulcus, with mild marginal osteophytosis. Proximal tibiofibular joint: Unremarkable, without evidence of ligament sprain injury, joint effusion or adjacent marrow edema. Bones: No stress/occult fractures or other marrow edema/pathology. IMPRESSION: 1. Focal low-grade partial tearing of the medial meniscal posterior root, with mild underlying bone marrow edema. 2. 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 3. Minimal osteoarthritis of the medial compartment. 4. Chronic sequela low-grade proximal MCL sprain. No cruciate or collateral ligament tear. 5. Mild popliteus, semimembranosus, & quadriceps tendinopathy, without tear. 6. Small knee joint effusion. No popliteal (King's) cyst. 7. No lateral meniscal tear or osteochondral abnormality of the lateral compartment. BC Electronically signed on 04/21/2025 9:06:00 AM by Keagan Alaniz M.D.
== END 2025-04-20 14:04 | disposition home or self-care (01) ==
LOC: MRI 14:04
PROVIDERS: PCP Internal Medicine; Visit Provider Orthopaedic Surgery
DX: M25.561 Pain in right knee (principal); S83.241A Other tear of medial meniscus, current injury, right knee, initial encounter; M17.11 Unilateral primary osteoarthritis, right knee; S83.411S Sprain of medial collateral ligament of right knee, sequela; M25.461 Effusion, right knee; S83.209A Unspecified tear of unspecified meniscus, current injury, unspecified knee, initial encounter
CPT/HCPCS: 73721

== ENCOUNTER 2025-06-22 15:22 | Outpatient (CLI) | payer OTHER, SELFPAY ==
--- NOTE | 2025-06-22 15:30 | MR_ITS ---
EXAM: MRI OF THE RIGHT KNEE CLINICAL INFORMATION: The patient is a 54-year-old with right knee pain. Evaluate for medial meniscal tear. PRIOR SURGERY: The patient has a history of prior right knee surgery. COMPARISON STUDIES: Comparison is made to the prior MRI examination dated 04/20/2025. TECHNICAL INFORMATION: Imaging was performed on a high-field, 1.5 Lillian MR scanner. Axial proton-density and fat-suppressed T2 imaging of the right knee was performed in addition to sagittal proton-density and fat-suppressed proton- density imaging. Coronal proton-density and coronal STIR imaging of the right knee was also produced. FINDINGS: Articular/Extraarticular collections: Effusion: Moderate. Popliteal cyst: None. Loose bodies: None. Subcutaneous and extraarticular soft tissues: Nonspecific subcutaneous soft tissue edema and/or hemorrhage can be seen along the anterior and medial aspects of the right knee. Osseous structures: No evidence for marrow edema or cortical injury. No evidence for fracture or stress injury. No evidence for destructive bony lesion. Ligamentous structures: ACL: Intact and normal in appearance. PCL: Intact and normal in appearance. MCL: Intact and normal in appearance. LCL: Intact and normal in appearance. Posterolateral corner: Intact and normal in appearance. Posteromedial corner: No posteromedial corner soft tissue injury. Semimembranosus and pes anserine tendons demonstrate no tendinopathy or associated bursitis. Extensor mechanism/Patellar retinacular structures: Patellar tendon: Intact, without tendinopathy. Quadriceps tendon: Intact, without tendinopathy. Retinacula: The medial and lateral retinacula are intact. The medial patellofemoral ligament is intact. Medial compartment: Medial meniscus: There is broad-based, full-thickness, radial tearing involving the posterior horn of the medial meniscus involving the meniscal root on coronal series 8 image 20 and on sagittal series 6 image 18. The finding measures 12 mm in mediolateral dimension and has progressed significantly in appearance when compared to the prior examination. Degeneration and fraying of the middle and posterior portions of the medial meniscus can also be seen. No evidence for parameniscal cyst formation is seen. Medial femoral condyle: Grade II chondromalacia can be seen along the weightbearing surfaces of the medial femoral condyle. No full-thickness chondral defects are seen. Medial tibial plateau: Grade II chondromalacia can be seen along the central and medial weightbearing surfaces of the medial tibial plateau. No full-thickness chondral defects are identified. Lateral compartment: Lateral meniscus: No evidence for lateral meniscal tearing is present. No evidence for parameniscal cyst formation can be seen. Lateral femoral condyle: No chondromalacia, chondral defect, or osteochondral abnormality. Lateral tibial plateau: No chondromalacia, chondral defect, or osteochondral abnormality. Patellofemoral compartment: Patella: There are broad-based changes of grade II to III chondromalacia involving the patellar apex as well as the medial and lateral patellar facets on axial series 5 image 11, measuring 25 mm in mediolateral dimension. Superimposed areas of full-thickness chondral loss can be seen along the inferior and medial aspects of the patella on axial series 5 image 13. Additional grade II chondromalacia of the remainder of the lateral patellar facet is noted. The findings are stable in appearance when compared to the prior examination. Trochlea: Broad-based changes of grade II to III chondromalacia can be seen along the articular surfaces of the femoral trochlea. Neurovascular: No definite neurovascular abnormalities are seen. CONCLUSION: 1. Full-thickness radial tear involving the posterior root of the medial meniscus, progressed in appearance when compared to the prior examination. No lateral meniscal tearing is seen. 2. Chondromalacia and chondral loss involving the patellofemoral articulation, stable in appearance when compared to the prior study. 3. Grade II chondromalacia along the weightbearing surfaces of the medial femoral condyle and medial tibial plateau. 4. The cruciate and collateral ligaments appear intact. 5. Moderate knee joint effusion. AEC Electronically signed on 06/23/2025 8:01:00 AM by Antoine Dugan M.D.
== END 2025-06-22 15:23 | disposition home or self-care (01) ==
LOC: MRI 15:22
PROVIDERS: PCP Internal Medicine; Visit Provider Orthopaedic Surgery Sports Medicine
DX: M25.561 Pain in right knee (principal); S83.241A Other tear of medial meniscus, current injury, right knee, initial encounter; M22.41 Chondromalacia patellae, right knee; M25.461 Effusion, right knee; S89.91XA Unspecified injury of right lower leg, initial encounter
CPT/HCPCS: 73721

== ENCOUNTER 2025-11-07 08:44 | Day surgery (SDC) | payer OTHER, SELFPAY ==
[2025-11-07] VITALS (12 sets, daily range): BP systolic 103–127; BP diastolic 59–84; PULSE 53–657; RESP 12–16; TEMP 36.1–37.2; O2SAT 92–98; BMI 34.1
--- NOTE | 2025-11-07 09:23 | W.PM.H&PU ---
History & Physical Update History & Physical Update H&P Reviewed and patient assessed: No changes noted
[2025-11-07] MEDS: LACTATED RINGERS 1000 ML 1,000 ML 100 ML IV (09:43)
[2025-11-07] MEDS: SODIUM CHLORIDE 0.9 % (FLUSH) 10 ML SYRINGE IVF (09:43)
--- NOTE | 2025-11-07 09:44 | SUR.PREOP ---
Discussed pt's allergies with Dr. Peralta and pt. Per Dr. Monteiro he wants to proceed with using the chlorhexidine prep in preop and surgery.
--- NOTE | 2025-11-07 10:55 | P.ANES_ITS ---
Anesthesia Charges Start Date/Time Anesthesia Start Date: 11/07/25 Anesthesia Start Time: 10:33 Stop Date/Time Anesthesia Stop Date: 11/07/25 Anesthesia Stop Time: 12:19 Coding CPT Codes CPT Codes: ANESTH KNEE ARTHROPLASTY - 33575 ([id number]) P2 - PATIENT W/MILD SYST DISEASE, QK - APPLICATION TESTER 2-4 CNCRNT ANES PROC, QX - PARACHUTE MENDER SVC W/ MD MED DIRECTION
--- NOTE | 2025-11-07 10:55 | W.ANESCHARGE ---
Anesthesia Charges Start Date/Time Anesthesia Start Date: 11/07/25 Anesthesia Start Time: 10:33 Stop Date/Time Anesthesia Stop Date: 11/07/25 Anesthesia Stop Time: 12:19 Coding CPT Codes CPT Codes: ANESTH KNEE ARTHROPLASTY - 10076 ([id number]) P2 - PATIENT W/MILD SYST DISEASE, QK - CODE CLERK 2-4 CNCRNT ANES PROC, QX - CLOTH ROLL WINDER SVC W/ MD MED DIRECTION
--- NOTE | 2025-11-07 11:17 | SUR.OPER ---
PATIENT QUESTIONS ANSWERED SATISFACTORILY PREOPERATIVELY.? PATIENT BROUGHT TO OR #2 PER CART.? Patient positioned supine on OR #2 bed.? The perioperative?team supported arms bilaterally on arm boards.? Final approval of positioning by surgeon.? CONTINUOUS IRRIGATION OF THE RIGHT KNEE DURING THE PROCEDURE WITH NACL.
--- NOTE | 2025-11-07 11:29 | SUR.OPER ---
DR. FRY ORDERS CHLORHEXIDINE PREP TO BE CLEANED OFF RIGHT AWAY BEFORE PLACING THE DRESSING.
--- NOTE | 2025-11-07 11:31 | SUR.OPER ---
1/8 x 2-3 SCABBED SCRATCH 1 ABOVE THE GTOUND PAD SITE.
--- NOTE | 2025-11-07 11:56 | W.PM.NB ---
Nerve Block Nerve Block Time Seen by Provider: 12:05 Date Seen: 11/07/25 Type of block requested by surgeon for post-operative analgesia: geniculars Side: right Time out performed: Yes Verification of patient name: Yes Verification of date of : Yes Site marking: site marked Name of person performing procedure: Jordi Roach Continuous monitoring Was continuous monitoring of O2 sat, B/P, cardiac catheterization technologist, recorded every 15 minutes?: Yes Procedure Checklist: sterile prep, needles and gloves Ultrasound guided. Images saved: No Medications given in 5ml increments after negative aspiration: Ropivicaine %: 0.5 mL: 12 Needle gauge: 25 Patient tolerated procedure well: Yes Additional comments: Injected in 4ml increments after negative aspiration Block Charges Block Charge (with Pro Fee): Genicular Nerve Block Use of Ultrasound Machine for Block: No
[2025-11-07] MEDS: ROPIVACAINE 0.5% 30 ML 100 MG INJECTION (12:02)
--- NOTE | 2025-11-07 12:13 | P.ORPRC_ITS ---
Procedure Note Date of procedure: 11/07/25 Procedure: PREOPERATIVE DIAGNOSIS: 1. Right knee medial meniscus root tear POSTOPERATIVE DIAGNOSIS: 1. Right knee medial meniscus root tear, subacute 2. 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 Right knee arthroscopic medial meniscus root repair 2. Right knee microfracture intercondylar notch SURGEON: Bryson Peralta M.D. EXHIBITION DESIGNER: Esvin Patel PA-C. Of note, a skilled graduate assistant was critical for this case to aid in patient positioning, knee manipulation, skill to manipulate arthroscopic instruments and camera, instrument exchange, and closure. ANESTHESIA: Spinal EBL: 2 mL TOURNIQUET: 50 min at 250 torr IMPLANTS: Arthrex SutureLoc (x1) COMPLICATIONS: None evident INDICATIONS: The patient is a pleasant 54-year-old male who has experienced right knee pain particularly with any twisting or turning. Physical exam was concerning for medial meniscus tear, this was confirmed on MRI, but more specifically at the posterior root. The medial meniscus had otherwise extruded into the gutter. Attempted nonoperative management has been tried and failed. Thus, surgery was recommended for stabilization of the meniscus posterior root. FINDINGS: In the medial compartment, the medial meniscus was torn at the posterior root with slight posterior capsular fibers still connected. It was unstable and showed increased excursion when probed. The posterior root showed a fibrous layer over the torn and. The remaining part of meniscus was intact otherwise. Medial compartment articular cartilage showed grade 3 chondromalacia broadly throughout the weight-bearing portion.. Patellorfemoral cartilage showed grade 3 chondromalacia 3 majority of the patella and trochlear groove. Intact/healthy lateral compartment articular cartilage. Lateral meniscus was intact. ACL and PCL were intact and robust. DESCRIPTION OF PROCEDURE: After a thorough discussion of risks, benefits, and alternatives, the patient was brought to the operating room and placed upon the operating table. Induction of anesthesia was undertaken as previously noted. 2 g IV Ancef was administered within 1 hr of incision preoperatively. Appropriate time-out was performed identifying proper patient, site, and procedure. The right lower extremity was prepped and draped in the appropriate sterile fashion using ChloraPrep. The limb was exsanguinated and tourniquet inflated. Anterolateral and anteromedial portals were established with an 11 blade, and a diagnostic arthroscopy was performed. This identified the findings as noted above. Following the diagnostic arthroscopy, the meniscal root was debrided with a 4.0 mm torpedo shaver and arthroscopic rasp to freshen the meniscal edge. This also allowed us to debride some the synovium on the medial wall within the notch. The medial meniscal root was debrided with a 4.0 mm torpedo shaver and arthroscopic rasp to freshen the meniscal edge. This also allowed us to debride some the synovium and the tibial surface. The drill guide was utilized, a drill pin passed, and after confirming proper positioning, the stylus was removed and a Nitinol wire passed through the cannulated drill bit. This allowed us to shuttle a FiberLink. The FiberLink then allows to shuttle the Sutureloc device. After passing this and back loading it to confirm secure holding within the proximal tibia, 1 of the suture tails was passed in a vertical mattress fashion through the meniscus. This was done by passing 1 of the tails through followed by the FiberLink loop through and allowing this to shuttle that original suture back down through the meniscus. This was then shuttled through its respective link in the Sutureloc device. Prior to securing this fully, the 2nd suture was passed slightly more lateral allowing a rip-stop type of configuration. Thereafter, the knee was cycled multiple times and the sutures were re- tensioned. Excellent reapproximation of the meniscus was achieved. Finally, the arthrex powerpick device was utilized for microfracturing of the intercondylar. This was utilized to increase bleeding within the knee to improve vascularity and aid in healing of the meniscus repair. The shaver was utilized to remove any remaining bone/loose chondral debride. Instruments were removed, excess fluid was drained, and closure performed with 4-0 Monocryl for portal closure. Dressings were applied, the tourniquet deflated, and the patient was awoken from anesthesia and transferred to the PACU in stable condition. A skilled graduate assistant was critical for this case to aid in patient positioning, knee manipulation, skill to manipulate arthroscopic instruments and camera, instrument exchange, and closure. PLAN: 1. Toe-touch weightbear operative lower extremity. Crutch / walker ambulation assistance PRN. 2. Ice, acetominophen and/or ibuprofen, and Oxycodone for pain as needed. 3. Knee range of motion and quad sets/straight leg raise regularly 4. Follow up with PA visit in 1-2 weeks for a wound check.
--- NOTE | 2025-11-07 12:16 | SUR.OPER ---
RIGHT KNEE AREAS PREPPED W/CHLORHEXIDINE IRRIGATED AND WASH CLEAR OF THE PREP PRIOR TO APPLYING DRESSINGS.
--- NOTE | 2025-11-07 12:26 | P.ANES_ITS ---
Anesthesia Charges Start Date/Time Anesthesia Start Date: 11/07/25 Anesthesia Start Time: 10:33 Stop Date/Time Anesthesia Stop Date: 11/07/25 Anesthesia Stop Time: 12:19 Coding CPT Codes CPT Codes: ANESTH KNEE ARTHROPLASTY - 71384 ([id number]) P2 - PATIENT W/MILD SYST DISEASE, QK - SUPPLY MANAGER 2-4 CNCRNT ANES PROC, QX - TICKET DISPATCHER SVC W/ MD MED DIRECTION
--- NOTE | 2025-11-07 12:26 | W.ANESCHARGE ---
Anesthesia Charges Start Date/Time Anesthesia Start Date: 11/07/25 Anesthesia Start Time: 10:33 Stop Date/Time Anesthesia Stop Date: 11/07/25 Anesthesia Stop Time: 12:19 Coding CPT Codes CPT Codes: ANESTH KNEE ARTHROPLASTY - 64866 ([id number]) P2 - PATIENT W/MILD SYST DISEASE, QK - SURPLUS PROPERTY DISPOSAL AGENT 2-4 CNCRNT ANES PROC, QX - LOAN ORIGINATOR SVC W/ MD MED DIRECTION
--- NOTE | 2025-11-07 12:48 | SUR.PHASEI ---
patient met discharge criteria per anesthesia
[2025-11-07] MEDS: IBUPROFEN 200 MG TABLET 600 MG PO (12:59)
--- NOTE | 2025-11-07 14:20 | SUR.PHASEII ---
pt doing well. Pain 12/03, pt states when he moved it did hurt. Pain medications given to stay ahead of pain. Right leg dressing c/d/i. Pt tolerated toe touch weight bearing to get to wheelchair. Pt denies needing to urinate. Informed pt to try to void when he gets home and every 2 hours until he can urinate. Pt and understand what signs and symptoms to watch for urinary retention. Pt verbalized understanding if he can't void, to come to emergency room. pt and verbalized ready for discharge. Wheelchair out to car with and magnetic tape typewriter operator.
== END 2025-11-07 14:23 | disposition home or self-care (01) ==
LOC: OR 08:45
PROVIDERS: PCP Internal Medicine; Visit Provider Orthopaedic Surgery Sports Medicine
PROC: (CPT 29882; principal; 2025-11-07 10:30)
DX: S83.241A Other tear of medial meniscus, current injury, right knee, initial encounter (principal); M94.261 Chondromalacia, right knee
CPT/HCPCS: 29882; 29879; 01402; 64454; A9270; C1713; J0690; J1100; J2405; J2704; J2795; J3490; J7120; L1833